=== PATIENT | female | born 1935 | race African-American/Black ===

== ENCOUNTER 2020-11-08 18:48 | Inpatient (IN) | payer MEDICARE, BC ==
[~2020-11-08] VITALS: Ht 157.5 cm; Wt 85.8 kg
[2020-11-08 19:00] VITALS: BP 164/71
[2020-11-08 19:15] VITALS: BP 159/58
[2020-11-08] MEDS ORDERED: BISACODYL 10 MG SUPP.RECT. PR PRN (20:45)
[2020-11-08] MEDS ORDERED: ACETAMINOPHEN 650 MG SUPP.RECT. PR PRN (20:45)
[2020-11-08] MEDS ORDERED: METOCLOPRAMIDE HCL 10 MG/2 ML VIAL. IVP PRN (20:45)
[2020-11-08] MEDS ORDERED: DEXTROSE 50% 25 GM / 50ML DISP.SYRIN. IV PRN (20:45)
[2020-11-08] MEDS ORDERED: ONDANSETRON PF 4 MG/2 ML VIAL. IVP PRN (20:45)
[2020-11-08] MEDS ORDERED: GLIM2TAB7 PO (20:47)
[2020-11-08] MEDS ORDERED: PIOG15TA42 PO (20:52)
[2020-11-08] MEDS ORDERED: FERR-36 PO (20:52)
[2020-11-08] MEDS ORDERED: VALS160T3 PO (20:52)
[2020-11-08] MEDS ORDERED: VIT1TABL32 PO (20:52)
[2020-11-08] MEDS: IV 1/2 NORMAL SALINE 1,000 ML IV SCH (21:04)
[2020-11-08] MEDS: MORPHINE SULFATE 2 MG/ML VIAL. IV PRN (21:07)
[2020-11-08] MEDS: HEPARIN for SUB-Q USE 5,000 UNIT/ML VIAL. SQ SCH (21:20)
[2020-11-08] MEDS: PSYLLIUM HUSK (SUGAR FREE) 1 PKT PACKET PO SCH (21:30)
[2020-11-08] MEDS ORDERED: SENNOSIDES/DOCUSATE 8.6/50MG TABLET. PO PRN (21:30)
[2020-11-08 23:00] VITALS: BP_SYST 152; BP_SYST 164; BP_DIAS 71; BP_DIAS 72
[2020-11-08] MEDS: INSULIN LISPRO 300 UNITS/3 ML VIAL. SQ SCH (23:28)
[2020-11-09 03:00] VITALS: BP 161/66
[2020-11-09] MEDS: MORPHINE SULFATE 2 MG/ML VIAL. IV PRN ×5 (03:34→23:56)
[2020-11-09] MEDS: IV 1/2 NORMAL SALINE 1,000 ML IV SCH ×3 (05:38→23:49)
[2020-11-09] MEDS: HEPARIN for SUB-Q USE 5,000 UNIT/ML VIAL. SQ SCH ×3 (05:40→23:52)
[2020-11-09] MEDS: INSULIN LISPRO 300 UNITS/3 ML VIAL. SQ SCH ×3 (05:40→16:45)
[2020-11-09 07:00] VITALS: BP 140/49
[2020-11-09] MEDS: LOSARTAN POTASSIUM 50 MG TABLET. PO SCH ×2 (08:30→16:47)
[2020-11-09] MEDS: POLYETHYLENE GLYCOL 3350 17 GM PACKET. PO SCH (08:30)
[2020-11-09] MEDS: MULTIVITAMIN I-VITE TABLET. PO SCH (08:30)
[2020-11-09 10:07] LABS: BASO % 1 % (0-3); EOS # 0.2 x10^3/uL (0.0-0.7); EOS % 3 % (0-3); HEMATOCRIT 33.9 % (36.0-47.0); LYMPH # 1.5 x10^3/uL (1.0-4.8); LYMPH % 34 % (24-48); MEAN CORPUSCULAR HEMOGLOBIN 32 pg (25-35); MEAN CORPUSCULAR HGB CONC 33 g/dL (31-37); MEAN CORPUSCULAR VOLUME 99 fL (79-100); MONO # 0.5 x10^3/uL (0.0-1.1); MONO % 12 % (0-9); NEUT # 2.3 x10^3/uL (1.8-7.7); NEUT % 51 % (31-73); PLATELET COUNT 134 x10^3/uL (140-400); RED BLOOD COUNT 3.42 x10^6/uL (3.50-5.40); WHITE BLOOD COUNT 4.5 x10^3/uL (4.0-11.0)
[2020-11-09] MEDS ORDERED: CALCIUM CARBONATE 500 MG TAB.CHEW PO PRN (10:15)
[2020-11-09] MEDS ORDERED: ELECTROLYTE (NON-ICU) PROTOCOL. MC PRN (10:15)
[2020-11-09] MEDS ORDERED: BISACODYL 10 MG SUPP.RECT. PR PRN (10:15)
[2020-11-09] MEDS ORDERED: PROCHLORPERAZINE 25 MG SUPP.RECT. PR PRN (10:15)
[2020-11-09] MEDS ORDERED: IV RINGERS,LACTATED 1000ML 1,000 ML IV SCH (10:15)
[2020-11-09] MEDS ORDERED: LACTULOSE 20 GM/30 ML SOLUTION. PO PRN (10:15)
--- NOTE | 2020-11-09 10:26 | PDOC1 ---
History and Physical Date of Admission Date of Admission 11/09/2020 Identification/Chief Complaint Chief Complaint My back hurts Source Source: Chart review, Patient History of Present Illness History of Present Illness Patient is an 85-year-old female with multiple medical comorbidities that include hypertension diabetes iron deficiency anemia who was in her usual state of health until Wednesday when he started complaining of left CVA tenderness. The patient denied any urinary symptoms no dysuria no fever or chills were reported patient denied any nausea vomiting or diaphoresis reported either. She consulted her local emergency department and was admitted to [facility]. Past Medical History Cardiovascular: HTN, Hyperlipidemia Endocrine: Diabetes Past Surgical History Past Surgical History: No pertinent history Family History Family History: No Significant Social History Smoke: No ALCOHOL: none Drugs: None Current Medications Current Medications Current Medications Medications (Trade) Dose Ordered Sig/Karel Start Time Stop Time Status Last Admin Dose Admin Acetaminophen (Tylenol Supp) 650 mg PRN Q6HRS PRN 11/08/20 20:45 Bisacodyl (Dulcolax Supp) 10 mg PRN DAILY PRN 11/08/20 20:45 Dextrose (Dextrose 50%-Water Syringe) 12.5 gm PRN Q15MIN PRN 11/08/20 20:45 Heparin Sodium (Porcine) (Heparin Sodium) 5,000 unit Q8HRS 11/08/20 22:00 11/09/20 05:40 5,000 UNIT Insulin Human Lispro (HumaLOG) 0-7 UNITS Q6HRS 11/09/20 00:00 Losartan Potassium (Cozaar) 100 mg DAILY 11/09/20 09:00 Metoclopramide HCl (Reglan Vial) 10 mg PRN Q6HRS PRN 11/08/20 20:45 Morphine Sulfate (Morphine Sulfate) 2 mg PRN Q1HR PRN 11/08/20 20:45 11/09/20 03:34 2 MG Multivitamins/ Minerals (I-Marily) 1 tab DAILY 11/09/20 09:00 Olanzapine (ZyPREXA ZYDIS) 5 mg PRN BID PRN 11/08/20 21:30 Ondansetron HCl (Zofran) 4 mg PRN Q6HRS PRN 11/08/20 20:45 11/08/20 21:05 4 MG Polyethylene Glycol (miraLAX PACKET) 17 gm DAILY 11/09/20 09:00 Psyllium Hydrophilic Mucilloid (Metamucil Fiber Packet) 1 pkt QHS 11/08/20 21:30 Senna/Docusate Sodium (Senna Plus) 2 tab PRN BID PRN 11/08/20 21:30 Sodium Chloride 1,000 ml @ 100 mls/hr Q10H 11/08/20 20:45 11/09/20 05:38 100 MLS/HR Allergies Allergies Allergies Coded Allergies Type Severity Reaction Last Updated Verified Sulfa (Sulfonamide Antibiotics) Allergy Unknown 11/08/20 Yes ROS Review of System CONSTITUTIONAL: No fever or chills EYES: No recent changes SKIN: No rash or itching CARDIOVASCULAR: No chest pain, syncope, palpitations, or edema RESPIRATORY: No SOB or cough GASTROINTESTINAL: No nausea, vomiting or abdominal pain NEUROLOGICAL: No headaches or weakness ENDOCRINE: No cold or heat intolerance GENITOURINARY: No urgency or frequency of urination MUSCULOSKELETAL: No back pain or joint pain LYMPHATICS: No enlarged lymph nodes PSYCHIATRIC: No anxiety or depression Physical Exam Physical Exam GEN.: No apparent distress. Alert and oriented. HEENT: Head is normocephalic, atraumatic NECK: Supple. LUNGS: Clear to auscultation. HEART: RRR, S1, S2 present. Peripheral pulses intact ABDOMEN: Soft, nontender. Positive bowel sounds. EXTREMITIES: Without any cyanosis. NEUROLOGIC: Normal speech, normal tone PSYCHIATRIC: Normal affect, normal mood. SKIN: No ulcerations Vitals Vitals Vital Signs Date Time Temp Pulse Resp B/P (MAP) Pulse Ox O2 Delivery O2 Flow Rate FiO2 11/09/20 07:00 98.4 75 16 140/49 (79) 99 Room Air 98.4 Labs Labs Laboratory Tests Test 11/08/20 21:31 11/09/20 01:53 11/09/20 05:37 Glucose (Fingerstick) 132 mg/dL (70-99) 123 mg/dL (70-99) 124 mg/dL (70-99) Laboratory Tests Test 11/08/20 21:31 11/09/20 01:53 11/09/20 05:37 Glucose (Fingerstick) 132 mg/dL (70-99) 123 mg/dL (70-99) 124 mg/dL (70-99) VTE Prophylaxis Ordered VTE Prophylaxis Devices: Yes VTE Pharmacological Prophylaxi: No Assessment/Plan Assessment/Plan Anemia of unknown origin, etiology undetermined Reported nausea and vomiting currently resolved Left CVA tenderness, no rash visible. essential hypertension DM type 2 dyslipidemia Plan: will request GI consultation Symptoms control N.p.o. at the present time Resume home medications once available to resume oral intake Further recommendations based on clinical course DVT prophylaxis with SCDs based on history of possible GI bleeding Justifications for Admission Abdominal Pain Indications Is patient in severe pain?: Yes Is NPO status required?: Yes Justification for admission: Patient may require to be NPO for greater 24hours making it medically necessary to manage patient as inpatient. Other Justification COOKIE DOMINGUEZ MD Nov 09, 2020 10:26
[2020-11-09 10:33] LABS: ALBUMIN/GLOBULIN RATIO 0.9 (1.0-1.7); CREATININE 1.3 mg/dL (0.6-1.0); GFR 47.2; POTASSIUM 4.6 mmol/L (3.5-5.1); TOTAL BILIRUBIN 0.4 mg/dL (0.2-1.0); TOTAL PROTEIN 6.2 g/dL (6.4-8.2)
[2020-11-09 11:00] VITALS: BP 193/79
[2020-11-09 11:23] LABS: PROTHROMBIN TIME PATIENT 13.6 SEC (11.7-14.0)
[2020-11-09] MEDS: ONDANSETRON PF 4 MG/2 ML VIAL. IVP PRN ×2 (13:07→20:07)
--- NOTE | 2020-11-09 14:08 | PDOC2 ---
CONSULT Date of Consult Date of Consult DATE: 11/09/20 TIME: 14:00 Reason for Consult Reason for Consult: Nausea, vomiting, left-sided upper abdominal and flank pain History of Present Illness Reason for Visit: This is a very pleasant 85-year-old female who was transferred here from [facility]. She describes a fairly sudden onset of left-sided abdominal or flank pain starting on Wednesday. She had taken her grandson to school then came home and without any specific exertion or other change she developed sharp pain that "caught her". It was associated with nausea and some vomiting. She went to the emergency room and apparently had a negative work-up and was sent home but returned with persistent symptoms yesterday. She normally has a regular bowel pattern but has had no bowel movement in 2 days. She denies diarrhea, fever, rectal bleeding or melena. She also denies epigastric pain. Her pain is more in the under the left side of the abdomen but mostly in the left flank. It is not necessarily associated with eating but seems worse with movement on some occasions. She is not been able to eat much since this started. She continues to be nauseated today. She describes a colonoscopy 4 years ago that was relatively negative. Curiously back in 2016 she had some up per abdominal pain in the epigastric region, different than this, without nausea or vomiting but was never diagnosed as to the cause. Those symptoms resolved and over the past 4 years she denies any chronic significant GI complaints. Particular she denies heartburn, dyspepsia, nausea, upper abdominal pain etc. Her bowel pattern is regular daily. Past Medical History Cardiovascular: HTN, Hyperlipidemia Endocrine: Diabetes Past Surgical History Past Surgical History: No pertinent history Family History Family History: No Significant Social History No ALCOHOL: none Drugs: None Current Medications Current Medications Current Medications Sodium Chloride 1,000 ml @ 100 mls/hr Q10H IV Last administered on 11/09/20at 05:38; Start 11/08/20 at 20:45 Ondansetron HCl (Zofran) 4 mg PRN Q6HRS PRN IVP NAUSEA/VOMITING Last administered on 11/08/20at 21:05; Start 11/08/20 at 20:45; Stop 11/09/20 at 10:08; Status DC Morphine Sulfate (Morphine Sulfate) 2 mg PRN Q1HR PRN IV PAIN Last administered on 11/09/20at 03:34; Start 11/08/20 at 20:45; Stop 11/09/20 at 10:18; Status DC Bisacodyl (Dulcolax Supp) 10 mg PRN DAILY PRN MA CONSTIPATION; Start 11/08/20 at 20:45; Stop 11/09/20 at 10:17; Status DC Heparin Sodium (Porcine) (Heparin Sodium) 5,000 unit Q8HRS SQ Last administered on 11/09/20at 05:40; Start 11/08/20 at 22:00 Acetaminophen (Tylenol Supp) 650 mg PRN Q6HRS PRN MA MILD PAIN / TEMP > 100.3'F; Start 11/08/20 at 20:45 Insulin Human Lispro (HumaLOG) 0-7 UNITS Q6HRS SQ ; Start 11/09/20 at 00:00 Dextrose (Dextrose 50%-Water Syringe) 12.5 gm PRN Q15MIN PRN IV SEE COMMENTS; Start 11/08/20 at 20:45 Metoclopramide HCl (Reglan Vial) 10 mg PRN Q6HRS PRN IVP NAUSEA/VOMITING-2ND CHOICE; Start 11/08/20 at 20:45 Multivitamins/ Minerals (I-Marily) 1 tab DAILY PO ; Start 11/09/20 at 09:00 Losartan Potassium (Cozaar) 100 mg DAILY PO ; Start 11/09/20 at 09:00 Psyllium Hydrophilic Mucilloid (Metamucil Fiber Packet) 1 pkt QHS PO ; Start 11/08/20 at 21:30 Olanzapine (ZyPREXA ZYDIS) 5 mg PRN BID PRN PO ANXIETY / AGITATION; Start 11/08/20 at 21:30 Polyethylene Glycol (miraLAX PACKET) 17 gm DAILY PO ; Start 11/09/20 at 09:00 Senna/Docusate Sodium (Senna Plus) 2 tab PRN BID PRN PO CONSTIPATION; Start 11/08/20 at 21:30; Stop 11/09/20 at 10:18; Status DC Ringer's Solution 1,000 ml @ 75 mls/hr [id number] IV Last administered on 11/09/20at 10:29; Start 11/09/20 at 10:15; Stop 11/09/20 at 23:34 Ondansetron HCl (Zofran) 4 mg PRN Q6HRS PRN IVP NAUSEA/VOMITING Last administered on 11/09/20at 13:07; Start 11/09/20 at 10:15 Prochlorperazine (Compazine) 25 mg PRN Q12HR PRN MA NAUSEA/VOMITING; Start 11/09/20 at 10:15 Calcium Carbonate/ Glycine (Tums) 500 mg PRN Q3HRS PRN PO UPSET STOMACH; Start 11/09/20 at 10:15 Zolpidem Tartrate (Ambien) 5 mg PRN QHS PRN PO INSOMNIA, MAY REPEAT IN 1HR; Start 11/09/20 at 10:15 Info (Non-Icu Electrolyte Protocol) 1 ea PRN DAILY PRN MC SEE COMMENTS; Start 11/09/20 at 10:15 Morphine Sulfate (Morphine Sulfate) 2 mg PRN Q1HR PRN IV PAIN MILD TO MOD Last administered on 11/09/20at 13:03; Start 11/09/20 at 10:15 Acetaminophen/ Hydrocodone Bitart (Lortab 5/325) 1 tab PRN Q4HRS PRN PO MILD PAIN 1-3; Start 11/09/20 at 10:15 Acetaminophen (Tylenol) 650 mg PRN Q6HRS PRN PO Headaches, Temp > 101.5F; Sta rt 11/09/20 at 10:15 Senna/Docusate Sodium (Senna Plus) 1 tab BID PO ; Start 11/09/20 at 21:00 Docusate Sodium (Colace) 100 mg BID PO ; Start 11/09/20 at 21:00 Lactulose (Lactulose) 20 gm PRN Q12HR PRN PO CONSTIPATION; Start 11/09/20 at 10:15 Bisacodyl (Dulcolax Supp) 10 mg PRN DAILY PRN MA CONSTIPATION; Start 11/09/20 at 10:15 Active Scripts Active Reported Iron (Ferrous Sulfate) 325 Mg Tablet 325 Mg PO BID Diovan (Valsartan) 160 Mg Tablet 160 Mg PO DAILY Actos (Pioglitazone Hcl) 15 Mg Tablet 15 Mg PO DAILY Ocuvite Tablet (Vit A,C & E/Lutein/Minerals) 1 Each Tablet 1 Tab PO DAILY 30 Days Glimepiride 2 Mg Tablet 2 Mg PO DAILY Allergies Allergies: Coded Allergies: Sulfa (Sulfonamide Antibiotics) (Verified Allergy, Unknown, 11/08/20) rash Physical Exam General: Alert, Oriented X3, Cooperative HEENT: Atraumatic, PERRLA, EOMI Lungs: Clear to auscultation Heart: Regular rate, Normal S1, Normal S2 Abdomen: Normal bowel sounds, Soft, No tenderness, No hepatosplenomegaly, No masses Extremities: No clubbing, No cyanosis Neuro: Normal speech Psych/Mental Status: Mental status NL Vitals VITALS Vital Signs Date Time Temp Pulse Resp B/P (MAP) Pulse Ox O2 Delivery O2 Flow Rate FiO2 11/09/20 13:36 Room Air 11/09/20 11:00 98.5 76 18 193/79 (117) 97 98.5 Labs Labs Laboratory Tests Test 11/08/20 21:31 11/09/20 01:53 11/09/20 05:37 11/09/20 08:41 Glucose (Fingerstick) 132 mg/dL (70-99) 123 mg/dL (70-99) 124 mg/dL (70-99) White Blood Count 4.5 x10^3/uL (4.0-11.0) Red Blood Count 3.42 x10^6/uL (3.50-5.40) Hemoglobin 11.0 g/dL (12.0-15.5) Hematocrit 33.9 % (36.0-47.0) Mean Corpuscular Volume 99 fL (79-100) Mean Corpuscular Hemoglobin 32 pg (25-35) Mean Corpuscular Hemoglobin Concent 33 g/dL (31-37) Red Cell Distribution Width 14.0 % (11.5-14.5) Platelet Count 134 x10^3/uL (140-400) Neutrophils (%) (Auto) 51 % (31-73) Lymphocytes (%) (Auto) 34 % (24-48) Monocytes (%) (Auto) 12 % (0-9) Eosinophils (%) (Auto) 3 % (0-3) Basophils (%) (Auto) 1 % (0-3) Neutrophils # (Auto) 2.3 x10^3/uL (1.8-7.7) Lymphocytes # (Auto) 1.5 x10^3/uL (1.0-4.8) Monocytes # (Auto) 0.5 x10^3/uL (0.0-1.1) Eosinophils # (Auto) 0.2 x10^3/uL (0.0-0.7) Basophils # (Auto) 0.0 x10^3/uL (0.0-0.2) Prothrombin Time 13.6 SEC (11.7-14.0) Prothromb Time International Ratio 1.1 (0.8-1.1) Sodium Level 142 mmol/L (136-145) Potassium Level 4.6 mmol/L (3.5-5.1) Chloride Level 107 mmol/L (98-107) Carbon Dioxide Level 27 mmol/L (21-32) Anion Gap 8 (6-14) Blood Urea Nitrogen 17 mg/dL (7-20) Creatinine 1.3 mg/dL (0.6-1.0) Estimated GFR (Cockcroft-Gault) 47.2 BUN/Creatinine Ratio 13 (6-20) Glucose Level 96 mg/dL (70-99) Calcium Level 9.0 mg/dL (8.5-10.1) Phosphorus Level 3.0 mg/dL (2.6-4.7) Magnesium Level 2.0 mg/dL (1.8-2.4) Iron Level 65 ug/dL (50-170) Total Iron Binding Capacity 293 ug/dL (250-450) Iron Saturation 22 % (15-34) Total Bilirubin 0.4 mg/dL (0.2-1.0) Aspartate Amino Transf (AST/SGOT) 18 U/L (15-37) Alanine Aminotransferase (ALT/SGPT) 25 U/L (14-59) Alkaline Phosphatase 55 U/L (46-116) Lactate Dehydrogenase 187 U/L (81-234) Total Protein 6.2 g/dL (6.4-8.2) Albumin 3.0 g/dL (3.4-5.0) Albumin/Globulin Ratio 0.9 (1.0-1.7) Thyroid Stimulating Hormone (TSH) 3.853 uIU/mL (0.358-3.74) Test 11/09/20 12:01 Glucose (Fingerstick) 99 mg/dL (70-99) Laboratory Tests Test 11/08/20 21:31 11/09/20 01:53 11/09/20 05:37 11/09/20 08:41 Glucose (Fingerstick) 132 mg/dL (70-99) 123 mg/dL (70-99) 124 mg/dL (70-99) White Blood Count 4.5 x10^3/uL (4.0-11.0) Red Blood Count 3.42 x10^6/uL (3.50-5.40) Hemoglobin 11.0 g/dL (12.0-15.5) Hematocrit 33.9 % (36.0-47.0) Mean Corpuscular Volume 99 fL (79-100) Mean Corpuscular Hemoglobin 32 pg (25-35) Mean Corpuscular Hemoglobin Concent 33 g/dL (31-37) Red Cell Distribution Width 14.0 % (11.5-14.5) Platelet Count 134 x10^3/uL (140-400) Neutrophils (%) (Auto) 51 % (31-73) Lymphocytes (%) (Auto) 34 % (24-48) Monocytes (%) (Auto) 12 % (0-9) Eosinophils (%) (Auto) 3 % (0-3) Basophils (%) (Auto) 1 % (0-3) Neutrophils # (Auto) 2.3 x10^3/uL (1.8-7.7) Lymphocytes # (Auto) 1.5 x10^3/uL (1.0-4.8) Monocytes # (Auto) 0.5 x10^3/uL (0.0-1.1) Eosinophils # (Auto) 0.2 x10^3/uL (0.0-0.7) Basophils # (Auto) 0.0 x10^3/uL (0.0-0.2) Prothrombin Time 13.6 SEC (11.7-14.0) Prothromb Time International Ratio 1.1 (0.8-1.1) Sodium Level 142 mmol/L (136-145) Potassium Level 4.6 mmol/L (3.5-5.1) Chloride Level 107 mmol/L (98-107) Carbon Dioxide Level 27 mmol/L (21-32) Anion Gap 8 (6-14) Blood Urea Nitrogen 17 mg/dL (7-20) Creatinine 1.3 mg/dL (0.6-1.0) Estimated GFR (Cockcroft-Gault) 47.2 BUN/Creatinine Ratio 13 (6-20) Glucose Level 96 mg/dL (70-99) Calcium Level 9.0 mg/dL (8.5-10.1) Phosphorus Level 3.0 mg/dL (2.6-4.7) Magnesium Level 2.0 mg/dL (1.8-2.4) Iron Level 65 ug/dL (50-170) Total Iron Binding Capacity 293 ug/dL (250-450) Iron Saturation 22 % (15-34) Total Bilirubin 0.4 mg/dL (0.2-1.0) Aspartate Amino Transf (AST/SGOT) 18 U/L (15-37) Alanine Aminotransferase (ALT/SGPT) 25 U/L (14-59) Alkaline Phosphatase 55 U/L (46-116) Lactate Dehydrogenase 187 U/L (81-234) Total Protein 6.2 g/dL (6.4-8.2) Albumin 3.0 g/dL (3.4-5.0) Albumin/Globulin Ratio 0.9 (1.0-1.7) Thyroid Stimulating Hormone (TSH) 3.853 uIU/mL (0.358-3.74) Test 11/09/20 12:01 Glucose (Fingerstick) 99 mg/dL (70-99) Images Images CT scan of the abdomen and pelvis done at [facility] yesterday. Revealed a left lobe hepatic hemangioma. Showed a normal-appearing spleen, pancreas and gallbladder. No biliary ductal dilation. Moderate colonic stool was present no bowel obstruction or inflammation was noted. No hydronephrosis or nephrolithiasis was noted. No ascites. Some thickening of the stomach lining possibly representing gastritis was noted. A 9 x 6 mm right lobe nodule in the lower lung was noted. Assessment/Plan Assessment/Plan Acute onset left-sided flank pain. Sharp onset. Not associated with meals but it was associated with nausea and vomiting. Does not radiate into the epigastric region. No associated dyspeptic or heartburn symptoms in the past. No regular use of NSAIDs or other ulcerogenic medications. However CT scan reveals thickening in the gastric wall which may be nonspecific. The rest of the CT scan is unrevealing in particular no evidence for colitis or kidney process on the left to explain her symptoms. She denies shortness of breath but does relate that the pain might be worse with movement. Nausea and vomiting. This could be secondary to the pain or might be a reflection of the gastritis that is noted on CT. However she lacks epigastric pain and her examination is benign otherwise. History of chronic mild anemia. Presently her hemoglobin was 12.5 which is nearly normal. The cause is unclear. The rest of her labs appear relatively normal. Plan: IV Protonix empirically Antiemetic therapy Clear liquid diet as tolerated Although gastritis was noted on her CT her symptoms are not particularly consistent with peptic ulcer disease or gastritis. However elective endoscopy may be warranted in the next few days. Further evaluation of the left kidney may be warranted based on her history but I will defer to the hospitalist on this issue ROSARIO HANSON MD Nov 09, 2020 14:08
[2020-11-09 15:00] VITALS: BP 166/56
[2020-11-09 19:00] VITALS: BP 162/63
[2020-11-09] MEDS: DOCUSATE SODIUM 100 MG CAPSULE. PO SCH (20:06)
[2020-11-09] MEDS: SENNOSIDES/DOCUSATE 8.6/50MG TABLET. PO SCH (20:06)
[2020-11-09 23:00] VITALS: BP 178/64
[2020-11-09] MEDS: PSYLLIUM HUSK (SUGAR FREE) 1 PKT PACKET PO SCH (23:55)
[2020-11-10 03:08] VITALS: BP 168/67
[2020-11-10] MEDS: INSULIN LISPRO 300 UNITS/3 ML VIAL. SQ SCH ×4 (06:00→18:00)
[2020-11-10] MEDS: MORPHINE SULFATE 2 MG/ML VIAL. IV PRN ×4 (06:28→20:29)
[2020-11-10] MEDS: HEPARIN for SUB-Q USE 5,000 UNIT/ML VIAL. SQ SCH ×3 (06:34→20:42)
[2020-11-10 07:00] VITALS: BP 167/68
[2020-11-10 07:27] LABS: BASO % 1 % (0-3); EOS # 0.2 x10^3/uL (0.0-0.7); EOS % 5 % (0-3); HEMATOCRIT 32.4 % (36.0-47.0); HEMOGLOBIN 10.5 g/dL (12.0-15.5); LYMPH # 1.6 x10^3/uL (1.0-4.8); LYMPH % 38 % (24-48); MEAN CORPUSCULAR HEMOGLOBIN 32 pg (25-35); MEAN CORPUSCULAR HGB CONC 32 g/dL (31-37); MEAN CORPUSCULAR VOLUME 99 fL (79-100); MONO # 0.6 x10^3/uL (0.0-1.1); MONO % 14 % (0-9); NEUT # 1.7 x10^3/uL (1.8-7.7); NEUT % 42 % (31-73); PLATELET COUNT 122 x10^3/uL (140-400); RED BLOOD COUNT 3.28 x10^6/uL (3.50-5.40); RED CELL DISTRIBUTION WIDTH 13.7 % (11.5-14.5); WHITE BLOOD COUNT 4.1 x10^3/uL (4.0-11.0)
--- NOTE | 2020-11-10 07:51 | PDOC ---
PROGRESS NOTES Date of Service: DATE: 11/10/20 TIME: 07:47 Chief Complaint Chief Complaint Assessment/Plan Anemia of unknown origin, etiology undetermined, seems to be of chronic inflammation. Unlikely she is actively having a GI bleed nevertheless we will continue to follow recommendations from school plant consultant Reported nausea and vomiting currently has recurred Left CVA tenderness, no rash visible to think of zoster. We will request renal ultrasound in light of her renal dysfunction Elevated creatinine which may be due to chronic kidney disease stage IIIa at least essential hypertension fairly controlled DM type 2 dyslipidemia Plan: We will request hemoglobin A1c Symptoms control Liquid diet at the present time given her symptoms Resume home medications once available to resume oral intake Further recommendations based on clinical course DVT prophylaxis with SCDs based on history of possible GI bleeding History of Present Illness History of Present Illness History of Present Illness Patient is an 85-year-old female with multiple medical comorbidities that include hypertension diabetes iron deficiency anemia who was in her usual state of health until Wednesday when he started complaining of left CVA tenderness. The patient denied any urinary symptoms no dysuria no fever or chills were r eported patient denied any nausea vomiting or diaphoresis reported either. She consulted her local emergency department and was admitted to [facility]. 11/10: Patient laying in bed in no acute distress. The patient had 3 emetic episodes during the evening. Patient denies hematemesis still complaining of epigastric pain which may be related to peptic ulcer disease. Patient still having left flank pain. No hematuria reported no radiation to the groin. Renal dysfunction noted upon admission we will request renal ultrasound for today. Plan of care explained detail all concerns addressed to the best my abilities Vitals Vitals Vital Signs Date Time Temp Pulse Resp B/P (MAP) Pulse Ox O2 Delivery O2 Flow Rate FiO2 11/10/20 06:28 18 Room Air 11/10/20 03:08 97.9 71 168/67 (100) 95 97.9 Physical Exam General: Alert, Oriented X3, Cooperative Heart: Regular rate, Normal S1, Normal S2 Abdomen: Normal bowel sounds, Soft, No tenderness, No hepatosplenomegaly, No masses Extremities: No clubbing, No cyanosis Labs LABS Laboratory Tests Test 11/09/20 08:41 11/09/20 12:01 11/09/20 16:45 11/09/20 23:17 White Blood Count 4.5 x10^3/uL (4.0-11.0) Red Blood Count 3.42 x10^6/uL (3.50-5.40) Hemoglobin 11.0 g/dL (12.0-15.5) Hematocrit 33.9 % (36.0-47.0) Mean Corpuscular Volume 99 fL (79-100) Mean Corpuscular Hemoglobin 32 pg (25-35) Mean Corpuscular Hemoglobin Concent 33 g/dL (31-37) Red Cell Distribution Width 14.0 % (11.5-14.5) Platelet Count 134 x10^3/uL (140-400) Neutrophils (%) (Auto) 51 % (31-73) Lymphocytes (%) (Auto) 34 % (24-48) Monocytes (%) (Auto) 12 % (0-9) Eosinophils (%) (Auto) 3 % (0-3) Basophils (%) (Auto) 1 % (0-3) Neutrophils # (Auto) 2.3 x10^3/uL (1.8-7.7) Lymphocytes # (Auto) 1.5 x10^3/uL (1.0-4.8) Monocytes # (Auto) 0.5 x10^3/uL (0.0-1.1) Eosinophils # (Auto) 0.2 x10^3/uL (0.0-0.7) Basophils # (Auto) 0.0 x10^3/uL (0.0-0.2) Haptoglobin 114 mg/dL (41-333) Prothrombin Time 13.6 SEC (11.7-14.0) Prothromb Time International Ratio 1.1 (0.8-1.1) Sodium Level 142 mmol/L (136-145) Potassium Level 4.6 mmol/L (3.5-5.1) Chloride Level 107 mmol/L (98-107) Carbon Dioxide Level 27 mmol/L (21-32) Anion Gap 8 (6-14) Blood Urea Nitrogen 17 mg/dL (7-20) Creatinine 1.3 mg/dL (0.6-1.0) Estimated GFR (Cockcroft-Gault) 47.2 BUN/Creatinine Ratio 13 (6-20) Glucose Level 96 mg/dL (70-99) Calcium Level 9.0 mg/dL (8.5-10.1) Phosphorus Level 3.0 mg/dL (2.6-4.7) Magnesium Level 2.0 mg/dL (1.8-2.4) Iron Level 65 ug/dL (50-170) Total Iron Binding Capacity 293 ug/dL (250-450) Iron Saturation 22 % (15-34) Total Bilirubin 0.4 mg/dL (0.2-1.0) Aspartate Amino Transf (AST/SGOT) 18 U/L (15-37) Alanine Aminotransferase (ALT/SGPT) 25 U/L (14-59) Alkaline Phosphatase 55 U/L (46-116) Lactate Dehydrogenase 187 U/L (81-234) Total Protein 6.2 g/dL (6.4-8.2) Albumin 3.0 g/dL (3.4-5.0) Albumin/Globulin Ratio 0.9 (1.0-1.7) Thyroid Stimulating Hormone (TSH) 3.853 uIU/mL (0.358-3.74) Glucose (Fingerstick) 99 mg/dL (70-99) 108 mg/dL (70-99) 147 mg/dL (70-99) Test 11/10/20 06:23 Glucose (Fingerstick) 109 mg/dL (70-99) Review of Systems Review of Systems Review of systems pertinent as per HPI otherwise 14 point review of system is negative Comment Review of Relevant I have reviewed the following items maximilian (where applicable) has been applied. Labs Laboratory Tests Test 11/08/20 21:31 11/09/20 01:53 11/09/20 05:37 11/09/20 08:41 Glucose (Fingerstick) 132 mg/dL (70-99) 123 mg/dL (70-99) 124 mg/dL (70-99) White Blood Count 4.5 x10^3/uL (4.0-11.0) Red Blood Count 3.42 x10^6/uL (3.50-5.40) Hemoglobin 11.0 g/dL (12.0-15.5) Hematocrit 33.9 % (36.0-47.0) Mean Corpuscular Volume 99 fL (79-100) Mean Corpuscular Hemoglobin 32 pg (25-35) Mean Corpuscular Hemoglobin Concent 33 g/dL (31-37) Red Cell Distribution Width 14.0 % (11.5-14.5) Platelet Count 134 x10^3/uL (140-400) Neutrophils (%) (Auto) 51 % (31-73) Lymphocytes (%) (Auto) 34 % (24-48) Monocytes (%) (Auto) 12 % (0-9) Eosinophils (%) (Auto) 3 % (0-3) Basophils (%) (Auto) 1 % (0-3) Neutrophils # (Auto) 2.3 x10^3/uL (1.8-7.7) Lymphocytes # (Auto) 1.5 x10^3/uL (1.0-4.8) Monocytes # (Auto) 0.5 x10^3/uL (0.0-1.1) Eosinophils # (Auto) 0.2 x10^3/uL (0.0-0.7) Basophils # (Auto) 0.0 x10^3/uL (0.0-0.2) Haptoglobin 114 mg/dL (41-333) Prothrombin Time 13.6 SEC (11.7-14.0) Prothromb Time International Ratio 1.1 (0.8-1.1) Sodium Level 142 mmol/L (136-145) Potassium Level 4.6 mmol/L (3.5-5.1) Chloride Level 107 mmol/L (98-107) Carbon Dioxide Level 27 mmol/L (21-32) Anion Gap 8 (6-14) Blood Urea Nitrogen 17 mg/dL (7-20) Creatinine 1.3 mg/dL (0.6-1.0) Estimated GFR (Cockcroft-Gault) 47.2 BUN/Creatinine Ratio 13 (6-20) Glucose Level 96 mg/dL (70-99) Calcium Level 9.0 mg/dL (8.5-10.1) Phosphorus Level 3.0 mg/dL (2.6-4.7) Magnesium Level 2.0 mg/dL (1.8-2.4) Iron Level 65 ug/dL (50-170) Total Iron Binding Capacity 293 ug/dL (250-450) Iron Saturation 22 % (15-34) Total Bilirubin 0.4 mg/dL (0.2-1.0) Aspartate Amino Transf (AST/SGOT) 18 U/L (15-37) Alanine Aminotransferase (ALT/SGPT) 25 U/L (14-59) Alkaline Phosphatase 55 U/L (46-116) Lactate Dehydrogenase 187 U/L (81-234) Total Protein 6.2 g/dL (6.4-8.2) Albumin 3.0 g/dL (3.4-5.0) Albumin/Globulin Ratio 0.9 (1.0-1.7) Thyroid Stimulating Hormone (TSH) 3.853 uIU/mL (0.358-3.74) Test 11/09/20 12:01 11/09/20 16:45 11/09/20 23:17 11/10/20 06:23 Glucose (Fingerstick) 99 mg/dL (70-99) 108 mg/dL (70-99) 147 mg/dL (70-99) 109 mg/dL (70-99) Laboratory Tests Test 11/09/20 08:41 11/09/20 12:01 11/09/20 16:45 11/09/20 23:17 White Blood Count 4.5 x10^3/uL (4.0-11.0) Red Blood Count 3.42 x10^6/uL (3.50-5.40) Hemoglobin 11.0 g/dL (12.0-15.5) Hematocrit 33.9 % (36.0-47.0) Mean Corpuscular Volume 99 fL (79-100) Mean Corpuscular Hemoglobin 32 pg (25-35) Mean Corpuscular Hemoglobin Concent 33 g/dL (31-37) Red Cell Distribution Width 14.0 % (11.5-14.5) Platelet Count 134 x10^3/uL (140-400) Neutrophils (%) (Auto) 51 % (31-73) Lymphocytes (%) (Auto) 34 % (24-48) Monocytes (%) (Auto) 12 % (0-9) Eosinophils (%) (Auto) 3 % (0-3) Basophils (%) (Auto) 1 % (0-3) Neutrophils # (Auto) 2.3 x10^3/uL (1.8-7.7) Lymphocytes # (Auto) 1.5 x10^3/uL (1.0-4.8) Monocytes # (Auto) 0.5 x10^3/uL (0.0-1.1) Eosinophils # (Auto) 0.2 x10^3/uL (0.0-0.7) Basophils # (Auto) 0.0 x10^3/uL (0.0-0.2) Haptoglobin 114 mg/dL (41-333) Prothrombin Time 13.6 SEC (11.7-14.0) Prothromb Time International Ratio 1.1 (0.8-1.1) Sodium Level 142 mmol/L (136-145) Potassium Level 4.6 mmol/L (3.5-5.1) Chloride Level 107 mmol/L (98-107) Carbon Dioxide Level 27 mmol/L (21-32) Anion Gap 8 (6-14) Blood Urea Nitrogen 17 mg/dL (7-20) Creatinine 1.3 mg/dL (0.6-1.0) Estimated GFR (Cockcroft-Gault) 47.2 BUN/Creatinine Ratio 13 (6-20) Glucose Level 96 mg/dL (70-99) Calcium Level 9.0 mg/dL (8.5-10.1) Phosphorus Level 3.0 mg/dL (2.6-4.7) Magnesium Level 2.0 mg/dL (1.8-2.4) Iron Level 65 ug/dL (50-170) Total Iron Binding Capacity 293 ug/dL (250-450) Iron Saturation 22 % (15-34) Total Bilirubin 0.4 mg/dL (0.2-1.0) Aspartate Amino Transf (AST/SGOT) 18 U/L (15-37) Alanine Aminotransferase (ALT/SGPT) 25 U/L (14-59) Alkaline Phosphatase 55 U/L (46-116) Lactate Dehydrogenase 187 U/L (81-234) Total Protein 6.2 g/dL (6.4-8.2) Albumin 3.0 g/dL (3.4-5.0) Albumin/Globulin Ratio 0.9 (1.0-1.7) Thyroid Stimulating Hormone (TSH) 3.853 uIU/mL (0.358-3.74) Glucose (Fingerstick) 99 mg/dL (70-99) 108 mg/dL (70-99) 147 mg/dL (70-99) Test 11/10/20 06:23 Glucose (Fingerstick) 109 mg/dL (70-99) Medications Current Medications Sodium Chloride 1,000 ml @ 100 mls/hr Q10H IV Last administered on 11/09/20at 23:49; Start 11/08/20 at 20:45 Ondansetron HCl (Zofran) 4 mg PRN Q6HRS PRN IVP NAUSEA/VOMITING Last administered on 11/08/20at 21:05; Start 11/08/20 at 20:45; Stop 11/09/20 at 10:08; Status DC Morphine Sulfate (Morphine Sulfate) 2 mg PRN Q1HR PRN IV PAIN Last administered on 11/09/20at 03:34; Start 11/08/20 at 20:45; Stop 11/09/20 at 10:18; Status DC Bisacodyl (Dulcolax Supp) 10 mg PRN DAILY PRN [place] CONSTIPATION; Start 11/08/20 at 20:45; Stop 11/09/20 at 10:17; Status DC Heparin Sodium (Porcine) (Heparin Sodium) 5,000 unit Q8HRS SQ Last administered on 11/10/20at 06:34; Start 11/08/20 at 22:00 Acetaminophen (Tylenol Supp) 650 mg PRN Q6HRS PRN VA MILD PAIN / TEMP > 100.3'F; Start 11/08/20 at 20:45 Insulin Human Lispro (HumaLOG) 0-7 UNITS Q6HRS SQ ; Start 11/09/20 at 00:00 Dextrose (Dextrose 50%-Water Syringe) 12.5 gm PRN Q15MIN PRN IV SEE COMMENTS; Start 11/08/20 at 20:45 Metoclopramide HCl (Reglan Vial) 10 mg PRN Q6HRS PRN IVP NAUSEA/VOMITING-2ND CHOICE; Start 11/08/20 at 20:45 Multivitamins/ Minerals (I-Marily) 1 tab DAILY PO ; Start 11/09/20 at 09:00 Losartan Potassium (Cozaar) 100 mg DAILY PO Last administered on 11/09/20at 16:47; Start 11/09/20 at 09:00 Psyllium Hydrophilic Mucilloid (Metamucil Fiber Packet) 1 pkt QHS PO Last administered on 11/09/20at 23:55; Start 11/08/20 at 21:30 Olanzapine (ZyPREXA ZYDIS) 5 mg PRN BID PRN PO ANXIETY / AGITATION; Start 11/08/20 at 21:30 Polyethylene Glycol (miraLAX PACKET) 17 gm DAILY PO ; Start 11/09/20 at 09:00 Senna/Docusate Sodium (Senna Plus) 2 tab PRN BID PRN PO CONSTIPATION; Start 11/08/20 at 21:30; Stop 11/09/20 at 10:18; Status DC Ringer's Solution 1,000 ml @ 75 mls/hr [id number] IV Last administered on 11/09/20at 10:29; Start 11/09/20 at 10:15; Stop 11/09/20 at 23:34; Status DC Ondansetron HCl (Zofran) 4 mg PRN Q6HRS PRN IVP NAUSEA/VOMITING Last administered on 11/09/20at 20:07; Start 11/09/20 at 10:15 Prochlorperazine (Compazine) 25 mg PRN Q12HR PRN VA NAUSEA/VOMITING; Start 11/09/20 at 10:15 Calcium Carbonate/ Glycine (Tums) 500 mg PRN Q3HRS PRN PO UPSET STOMACH; Start 11/09/20 at 10:15 Zolpidem Tartrate (Ambien) 5 mg PRN QHS PRN PO INSOMNIA, MAY REPEAT IN 1HR; Start 11/09/20 at 10:15 Info (Non-Icu Electrolyte Protocol) 1 ea PRN DAILY PRN MC SEE COMMENTS; Start 11/09/20 at 10:15 Morphine Sulfate (Morphine Sulfate) 2 mg PRN Q1HR PRN IV PAIN MILD TO MOD Last administered on 11/10/20at 06:28; Start 11/09/20 at 10:15 Acetaminophen/ Hydrocodone Bitart (Lortab 5/325) 1 tab PRN Q4HRS PRN PO MILD PAIN 1-3; Start 11/09/20 at 10:15 Acetaminophen (Tylenol) 650 mg PRN Q6HRS PRN PO Headaches, Temp > 101.5F; Start 11/09/20 at 10:15 Senna/Docusate Sodium (Senna Plus) 1 tab BID PO Last administered on 11/09/20at 20:06; Start 11/09/20 at 21:00 Docusate Sodium (Colace) 100 mg BID PO Last administered on 11/09/20at 20:06; Start 11/09/20 at 21:00 Lactulose (Lactulose) 20 gm PRN Q12HR PRN PO CONSTIPATION; Start 11/09/20 at 10:15 Bisacodyl (Dulcolax Supp) 10 mg PRN DAILY PRN VA CONSTIPATION; Start 11/09/20 at 10:15 Pantoprazole Sodium (PROTONIX VIAL for IV PUSH) 40 mg DAILYAC IVP ; Start 11/10/20 at 07:30 Active Scripts Active Reported Iron (Ferrous Sulfate) 325 Mg Tablet 325 Mg PO BID Diovan (Valsartan) 160 Mg Tablet 160 Mg PO DAILY Actos (Pioglitazone Hcl) 15 Mg Tablet 15 Mg PO DAILY Ocuvite Tablet (Vit A,C & E/Lutein/Minerals) 1 Each Tablet 1 Tab PO DAILY 30 Days Glimepiride 2 Mg Tablet 2 Mg PO DAILY Vitals/I & O Vital Sign - Last 24 Hours 11/09/20 11/09/20 11/09/20 11/09/20 08:00 10:27 10:57 11:00 Temp 98.5 98.5 Pulse 76 Resp 18 B/P (MAP) 193/79 (117) Pulse Ox 97 O2 Delivery Room Air Room Air Room Air Room Air 11/09/20 11/09/20 11/09/20 11/09/20 13:03 13:36 15:00 16:47 Temp 99.7 99.7 Pulse 79 79 Resp 16 B/P (MAP) 166/56 (92) 166/56 Pulse Ox 94 O2 Delivery Room Air Room Air Room Air 11/09/20 11/09/20 11/09/20 11/09/20 16:47 17:21 19:00 20:00 Temp 98.8 98.8 Pulse 69 Resp 18 B/P (MAP) 162/63 (96) Pulse Ox 93 O2 Delivery Room Air Room Air Room Air Room Air 11/09/20 11/09/20 11/10/20 11/10/20 23:00 23:56 00:26 03:08 Temp 98.4 97.9 98.4 97.9 Pulse 74 71 Resp 20 18 18 18 B/P (MAP) 178/64 (102) 168/67 (100) Pulse Ox 96 95 O2 Delivery Room Air Room Air Room Air 11/10/20 06:28 Resp 18 O2 Delivery Room Air Intake and Output 11/09/20 11/09/20 11/10/20 15:00 23:00 07:00 Intake Total 0 ml 200 ml 1000 ml Output Total 0 ml Balance 0 ml 200 ml 1000 ml Justicifation of Admission Dx: Justifications for Admission: Justification of Admission Dx: Yes Acute Renal Failure: 75% Reduction in GFR COOKIE DOMINGUEZ MD Nov 10, 2020 07:51
[2020-11-10] MEDS: MULTIVITAMIN I-VITE TABLET. PO SCH (08:22)
[2020-11-10] MEDS: LOSARTAN POTASSIUM 50 MG TABLET. PO SCH (08:22)
[2020-11-10] MEDS: PANTOPRAZOLE IV PUSH 40 MG VIAL. IVP SCH (08:23)
[2020-11-10] MEDS: HYDROcodone/APAP 5/325MG 1 TAB TABLET PO PRN (08:23)
[2020-11-10] MEDS: SENNOSIDES/DOCUSATE 8.6/50MG TABLET. PO SCH ×2 (08:23→20:29)
[2020-11-10] MEDS: POLYETHYLENE GLYCOL 3350 17 GM PACKET. PO SCH (08:23)
[2020-11-10] MEDS: DOCUSATE SODIUM 100 MG CAPSULE. PO SCH ×2 (08:23→20:29)
[2020-11-10] MEDS: ONDANSETRON PF 4 MG/2 ML VIAL. IVP PRN (10:40)
[2020-11-10 11:00] VITALS: BP_SYST 206; BP_SYST 214; BP_DIAS 74; BP_DIAS 75
[2020-11-10] MEDS ORDERED: PROCHLORPERAZINE 10 MG/2 ML VIAL. IVP PRN (11:15)
[2020-11-10] MEDS ORDERED: PROCHLORPERAZINE 10 MG/2 ML VIAL. IM PRN (11:15)
[2020-11-10] MEDS ORDERED: LABETALOL 20 MG/4 ML DISP.SYRIN. IVP ONE (12:45)
[2020-11-10] MEDS ORDERED: hydrALAZINE 20 MG/ML VIAL. IVP PRN (12:45)
--- NOTE | 2020-11-10 14:21 | RAD ---
Renal ultrasound 11/10/2020. Reason for exam: Flank pain. FINDINGS: The right kidney has normal cortical thickness and echogenicity without apparent mass or ob struction. Measures 9.0 cm in length. The left kidney was partly obscured, but appears to have normal cortical thickness and echogenicity. The urinary bladder appears normal. IMPRESSION: No evidence of obstruction or large mass. The left kidney was partly obscured by bowel ga s. Electronically signed by: Ruben Yip Jr., MD (11/10/2020 1:55 PM) [id number]
--- NOTE | 2020-11-10 14:26 | PDOC ---
GI PROGRESS NOTES Date of Service: Date/Time DATE: 11/10/20 TIME: 14:23 Subjective Subjective Left-sided pain mostly in the left flank. Associated with nausea and vomiting so could not tolerate a liquid diet. No hematemesis. Objective Vitals Vital Signs Date Time Temp Pulse Resp B/P (MAP) Pulse Ox O2 Delivery O2 Flow Rate FiO2 11/10/20 11:28 Room Air 11/10/20 11:00 214/75 (121) 11/10/20 11:00 98.7 78 18 206/74 (118) 95 Room Air 98.7 11/10/20 10:49 Room Air 11/10/20 10:00 Room Air 11/10/20 08:23 Room Air 11/10/20 08:22 79 167/68 11/10/20 08:00 Room Air 11/10/20 07:00 98.1 79 16 167/68 (101) 96 Room Air 98.1 11/10/20 06:28 18 Room Air 11/10/20 03:08 97.9 71 18 168/67 (100) 95 Room Air 97.9 11/10/20 00:26 18 11/09/20 23:56 18 Room Air 11/09/20 23:00 98.4 74 20 178/64 (102) 96 Room Air 98.4 11/09/20 20:00 Room Air 11/09/20 19:00 98.8 69 18 162/63 (96) 93 Room Air 98.8 11/09/20 17:21 Room Air 11/09/20 16:47 Room Air 11/09/20 16:47 79 166/56 11/09/20 15:00 99.7 79 16 166/56 (92) 94 Room Air 99.7 Labs Labs Laboratory Tests Test 11/09/20 16:45 11/09/20 23:17 11/10/20 05:41 11/10/20 06:23 Glucose (Fingerstick) 108 mg/dL (70-99) 147 mg/dL (70-99) 109 mg/dL (70-99) White Blood Count 4.1 x10^3/uL (4.0-11.0) Red Blood Count 3.28 x10^6/uL (3.50-5.40) Hemoglobin 10.5 g/dL (12.0-15.5) Hematocrit 32.4 % (36.0-47.0) Mean Corpuscular Volume 99 fL (79-100) Mean Corpuscular Hemoglobin 32 pg (25-35) Mean Corpuscular Hemoglobin Concent 32 g/dL (31-37) Red Cell Distribution Width 13.7 % (11.5-14.5) Platelet Count 122 x10^3/uL (140-400) Neutrophils (%) (Auto) 42 % (31-73) Lymphocytes (%) (Auto) 38 % (24-48) Monocytes (%) (Auto) 14 % (0-9) Eosinophils (%) (Auto) 5 % (0-3) Basophils (%) (Auto) 1 % (0-3) Neutrophils # (Auto) 1.7 x10^3/uL (1.8-7.7) Lymphocytes # (Auto) 1.6 x10^3/uL (1.0-4.8) Monocytes # (Auto) 0.6 x10^3/uL (0.0-1.1) Eosinophils # (Auto) 0.2 x10^3/uL (0.0-0.7) Basophils # (Auto) 0.0 x10^3/uL (0.0-0.2) Test 11/10/20 11:39 Glucose (Fingerstick) 107 mg/dL (70-99) Physical Exam Physical Exam Chest clear Abdomen soft, nontender, normal bowel sounds. Tender in the left flank or left CVA region. Assessment Assessment Left flank or left CVA tenderness. Along with her nausea and vomiting these could be related as a source. However initial imaging with CT and urinalysis at [facility] were unrevealing. As suggested yesterday I agree with renal ultrasound and will also repeat urinalysis. Recurrent nausea and vomiting. Some inflammation in the stomach on CT but this all could be secondary to her pain. Continue Protonix. Nonetheless if the symptoms persist, upper endoscopy would be warranted. Dr. Bansal will assume her GI care tomorrow and make decisions regarding EGD possibilities. Justicifation of Admission Dx: Justifications for Admission: Justification of Admission Dx: Yes Acute Renal Failure: 75% Reduction in GFR ROSARIO HANSON MD Nov 10, 2020 14:26
[2020-11-10 15:00] VITALS: BP 171/57
[2020-11-10 19:00] VITALS: BP 151/48
[2020-11-10] MEDS: PSYLLIUM HUSK (SUGAR FREE) 1 PKT PACKET PO SCH (20:21)
[2020-11-10 23:00] VITALS: BP 141/44
[2020-11-11 03:02] VITALS: BP 148/45
[2020-11-11] MEDS: HEPARIN for SUB-Q USE 5,000 UNIT/ML VIAL. SQ SCH ×3 (05:51→20:02)
--- NOTE | 2020-11-11 05:51 | NUR ---
Heparin for 0600 held, as potential for EGD today.
[2020-11-11] MEDS: INSULIN LISPRO 300 UNITS/3 ML VIAL. SQ SCH ×5 (06:00→21:30)
[2020-11-11 06:34] LABS: BILIRUBIN,URINE NEGATIVE (NEG); CLARITY,URINE CLEAR; COLOR,URINE YELLOW; NITRITE,URINE NEGATIVE (NEG); PROTEIN,URINE NEGATIVE (NEG-TRACE); UROBILINOGEN,URINE 0.2 mg/dL (0.2 mg/dL)
[2020-11-11 07:00] VITALS: BP 181/67
[2020-11-11 07:21] LABS: BACTERIA,URINE 0 /HPF (0-FEW); RBC,URINE 0 /HPF (0-2)
[2020-11-11] MEDS: PANTOPRAZOLE IV PUSH 40 MG VIAL. IVP SCH (08:11)
[2020-11-11] MEDS: DOCUSATE SODIUM 100 MG CAPSULE. PO SCH ×2 (08:31→19:56)
[2020-11-11] MEDS: POLYETHYLENE GLYCOL 3350 17 GM PACKET. PO SCH (08:32)
[2020-11-11] MEDS: MULTIVITAMIN I-VITE TABLET. PO SCH (08:32)
[2020-11-11] MEDS: SENNOSIDES/DOCUSATE 8.6/50MG TABLET. PO SCH ×2 (08:32→19:56)
[2020-11-11] MEDS: LOSARTAN POTASSIUM 50 MG TABLET. PO SCH (08:50)
[2020-11-11 08:59] LABS: CALCIUM 8.9 mg/dL (8.5-10.1); CREATININE 1.3 mg/dL (0.6-1.0); GFR 47.2; POTASSIUM 4.2 mmol/L (3.5-5.1)
[2020-11-11 11:00] VITALS: BP 185/67
--- NOTE | 2020-11-11 11:16 | NUR ---
SW following. Discussed with RN, pt from home with family, room air, NPO, Rapid COVID-19 negative. Pt having an EGD. RN assessing whether pt needs PT/OT ordered. SW will continue to follow.
[2020-11-11] MEDS ORDERED: IV RINGERS,LACTATED 1000ML 1,000 ML IV ONE (13:15)
[2020-11-11] MEDS ORDERED: LIDOCAINE 2% PF 5 ML VIAL. ONE (14:34)
[2020-11-11] MEDS ORDERED: PROPOFOL 10 MG/ML (20ML) VIAL. IV ONE (14:34)
--- NOTE | 2020-11-11 14:50 | PDOC4 ---
PROCEDURE Procedure EGD Indication: Nausea and vomiting. Meds: per anesthesia Findings: E--Less than Grade I esophagitis at 39cm. G--normal D--Normal to second portion. Yaya. well. IMP: Mild reflux esophagitis REG: Continue PPI. Await urine C and S. OK to feed as able. Anemia parameters. SUNDEEP VARGAS MD Nov 11, 2020 14:50
[2020-11-11] MEDS ORDERED: hydrALAZINE 20 MG/ML VIAL. IVP ONE (15:15)
[2020-11-11 15:52] VITALS: BP 190/73
--- NOTE | 2020-11-11 16:43 | PDOC ---
[employer] PROGRESS NOTE Date of Service DOS: DATE: 11/11/20 TIME: 16:42 Chief Complaint Chief Complaint Assessment/Plan Anemia of unknown origin, etiology undetermined, seems to be of chronic inflammation. Unlikely she is actively having a GI bleed nevertheless we will continue to follow recommendations from building consultant Reported nausea and vomiting currently has recurred Left CVA tenderness, no rash visible to think of zoster. We will request renal ultrasound in light of her renal dysfunction Elevated creatinine which may be due to chronic kidney disease stage IIIa at least essential hypertension fairly controlled DM type 2 dyslipidemia Plan: We will request hemoglobin A1c Symptoms control Liquid diet at the present time given her symptoms Resume home medications once available to resume oral intake Further recommendations based on clinical course DVT prophylaxis with SCDs based on history of possible GI bleeding History of Present Illness History of Present Illness History of Present Illness Patient is an 85-year-old female with multiple medical comorbidities that include hypertension diabetes iron deficiency anemia who was in her usual state of health until Wednesday when he started complaining of left CVA tenderness. The patient denied any urinary symptoms no dysuria no fever or chills were reported patient denied any nausea vomiting or diaphoresis reported either. She consulted her local emergency department and was admitted to [facility]. 11/10: Patient laying in bed in no acute distress. The patient had 3 emetic episodes during the evening. Patient denies hematemesis still complaining of epigastric pain which may be related to peptic ulcer disease. Patient still having left flank pain. No hematuria reported no radiation to the groin. Renal dysfunction noted upon admission we will request renal ultrasound for today. Plan of care explained detail all concerns addressed to the best my abilities 11/11/2020 No acute events overnight. Patient plan for EGD today pending final reports. Patient's chart, labs, images were reviewed and discussed with RN Vitals/I&O Vitals/I&O: Vital Signs Date Time Temp Pulse Resp B/P (MAP) Pulse Ox O2 Delivery O2 Flow Rate FiO2 11/11/20 15:52 98.6 89 18 190/73 (112) 100 Room Air 98.6 11/11/20 14:50 2 I & O 11/10/20 11/10/20 11/11/20 15:00 23:00 07:00 Intake Total 340 ml 220 ml Balance 340 ml 220 ml Physical Exam General: Alert, Oriented X3, Cooperative Heart: Regular rate, Normal S1, Normal S2 Abdomen: Normal bowel sounds, Soft, No tenderness, No hepatosplenomegaly, No masses Extremities: No clubbing, No cyanosis Labs Labs: Laboratory Tests Test 11/10/20 18:14 11/10/20 23:55 11/11/20 05:00 11/11/20 06:17 Glucose (Fingerstick) 134 mg/dL (70-99) 117 mg/dL (70-99) 119 mg/dL (70-99) Urine Collection Type Unknown Urine Color Yellow Urine Clarity Clear Urine pH 5.0 (<5.0-8.0) Urine Specific [place] 1.015 (1.000-1.030) Urine Protein Negative mg/dL (NEG-TRACE) Urine Glucose (UA) Negative mg/dL (NEG) Urine Ketones (Stick) Trace mg/dL (NEG) Urine Blood Negative (NEG) Urine Nitrite Negative (NEG) Urine Bilirubin Negative (NEG) Urine Urobilinogen Dipstick 0.2 mg/dL (0.2 mg/dL) Urine Leukocyte Esterase Small (NEG) Urine RBC 0 /HPF (0-2) Urine WBC 1-4 /HPF (0-4) Urine Squamous Epithelial Cells Few /LPF Urine Bacteria 0 /HPF (0-FEW) Urine Mucus Slight /LPF Test 11/11/20 07:46 11/11/20 11:35 Sodium Level 144 mmol/L (136-145) Potassium Level 4.2 mmol/L (3.5-5.1) Chloride Level 109 mmol/L (98-107) Carbon Dioxide Level 27 mmol/L (21-32) Anion Gap 8 (6-14) Blood Urea Nitrogen 14 mg/dL (7-20) Creatinine 1.3 mg/dL (0.6-1.0) Estimated GFR (Cockcroft-Gault) 47.2 Glucose Level 103 mg/dL (70-99) Calcium Level 8.9 mg/dL (8.5-10.1) Iron Level 24 ug/dL (50-170) Total Iron Binding Capacity 265 ug/dL (250-450) Iron Saturation 9 % (15-34) Vitamin B12 Level > 2000 pg/mL (247-911) Glucose (Fingerstick) 109 mg/dL (70-99) Comment Review of Relevant I have reviewed the following items maximilian (where applicable) has been applied. Medications: Current Medications Medications (Trade) Dose Ordered Sig/Karel Route PRN Reason Start Time Stop Time Status Last Admin Dose Admin Ringer's Solution 1,000 ml @ 75 mls/hr 1X ONCE IV 11/11/20 13:15 11/12/20 02:34 11/11/20 14:38 Hydralazine HCl (Apresoline Inj) 10 mg 1X ONCE IVP 11/11/20 15:15 11/11/20 15:16 DC 11/11/20 15:29 Justifications for Admission Abdominal Pain Indications Is patient in severe pain?: Yes Is NPO status required?: Yes Justification for admission: Patient may require to be NPO for greater 24hours making it medically necessary to manage patient as inpatient. Other Justification HUMA DIAZ MD Nov 11, 2020 16:43
[2020-11-11 19:00] VITALS: BP 128/38
[2020-11-11] MEDS: ZOLPIDEM 5 MG TABLET. PO PRN (19:56)
[2020-11-11] MEDS: HYDROcodone/APAP 5/325MG 1 TAB TABLET PO PRN (19:57)
[2020-11-11] MEDS: PSYLLIUM HUSK (SUGAR FREE) 1 PKT PACKET PO SCH (21:00)
[2020-11-11 23:00] VITALS: BP 139/62
[2020-11-12 03:00] VITALS: BP 132/51
[2020-11-12] MEDS: PANTOPRAZOLE IV PUSH 40 MG VIAL. IVP SCH (05:48)
[2020-11-12] MEDS: HEPARIN for SUB-Q USE 5,000 UNIT/ML VIAL. SQ SCH ×3 (05:52→21:40)
[2020-11-12 07:00] VITALS: BP 160/60
[2020-11-12] MEDS: INSULIN LISPRO 300 UNITS/3 ML VIAL. SQ SCH ×4 (08:00→20:50)
[2020-11-12] MEDS: MULTIVITAMIN I-VITE TABLET. PO SCH (08:28)
[2020-11-12] MEDS: SENNOSIDES/DOCUSATE 8.6/50MG TABLET. PO SCH ×2 (08:28→21:38)
[2020-11-12] MEDS: DOCUSATE SODIUM 100 MG CAPSULE. PO SCH ×2 (08:28→21:38)
[2020-11-12] MEDS: POLYETHYLENE GLYCOL 3350 17 GM PACKET. PO SCH (08:28)
[2020-11-12] MEDS: LOSARTAN POTASSIUM 50 MG TABLET. PO SCH (08:28)
--- NOTE | 2020-11-12 09:57 | PDOC ---
Date of Service: DATE: 11/12/20 TIME: 09:53 Subjective: Subjective: Left-sided pain resolved. Tolerated breakfast. Feels well enough to go home but also has right hip pain now. Objective: Vital Signs: Vital Signs Date Time Temp Pulse Resp B/P (MAP) Pulse Ox O2 Delivery O2 Flow Rate FiO2 11/12/20 08:28 73 160/60 11/12/20 08:00 Room Air 11/12/20 07:00 97.9 17 95 97.9 11/11/20 14:50 2 Labs: Laboratory Tests Test 11/11/20 11:35 11/11/20 18:05 11/11/20 21:07 Glucose (Fingerstick) 109 mg/dL (70-99) 165 mg/dL (70-99) 200 mg/dL (70-99) Imaging: EGD 11/11 Indication: Nausea and vomiting. E--Less than Grade I esophagitis at 39cm. G--normal D--Normal to second portion. IMP: Mild reflux esophagitis REG: Continue PPI. Await urine C and S. OK to feed as able. Anemia parameters. PE: GEN: NAD - sitting on edge of bed LUNGS: CTAB HEART: RRR ABD: S/ND/NT NEURO/PSYCH: A & O 3 A/P: N/v, left-sided pain - resolved YONI - iron BID on summary list Mild GERD CRC screen - last ~4 years ago -- Continue PPI - change to PO. ?taking iron at home? No stools charted - looks like she declines Metamucil, Miralax, etc. Justicifation of Admission Dx: Justifications for Admission: Justification of Admission Dx: Yes Acute Renal Failure: 75% Reduction in GFR HUI SINGH Nov 12, 2020 09:57
[2020-11-12 11:00] VITALS: BP 149/54
--- NOTE | 2020-11-12 11:19 | DISCH ---
DISCHARGE INSTRUCTIONS Condition on Discharge Condition on Discharge: Stable Activity After Discharge Activity Instructions for Disc: Activity as tolerated Diet after Discharge Diet after Discharge: GI Soft Contacting the DR. after DC Call your doctor for: If your condition worsens Follow-Up Follow up with: PCP within 2 weeks Follow Up With: GI as needed HUMA DIAZ MD Nov 12, 2020 11:19
[2020-11-12] MEDS: FERROUS SULFATE 325 MG TABLET. PO SCH ×2 (11:57→17:00)
[2020-11-12] MEDS: HYDROcodone/APAP 5/325MG 1 TAB TABLET PO PRN ×2 (13:24→21:43)
[2020-11-12 15:00] VITALS: BP 164/56
[2020-11-12 15:00] LABS: CALCIUM 9.2 mg/dL (8.5-10.1); CREATININE 1.7 mg/dL (0.6-1.0); GFR 34.6
--- NOTE | 2020-11-12 15:16 | PDOC ---
[employer] PROGRESS NOTE Date of Service DOS: DATE: 11/12/20 TIME: 15:15 Chief Complaint Chief Complaint Assessment/Plan Anemia of unknown origin, etiology undetermined, seems to be of chronic inflammation. Unlikely she is actively having a GI bleed nevertheless we will continue to follow recommendations from spa consultant Reported nausea and vomiting currently has recurred Left CVA tenderness, no rash visible to think of zoster. We will request renal ultrasound in light of her renal dysfunction Elevated creatinine which may be due to chronic kidney disease stage IIIa at least essential hypertension fairly controlled DM type 2 dyslipidemia Plan: We will request hemoglobin A1c Symptoms control Liquid diet at the present time given her symptoms Resume home medications once available to resume oral intake Further recommendations based on clinical course DVT prophylaxis with SCDs based on history of possible GI bleeding History of Present Illness History of Present Illness History of Present Illness Patient is an 85-year-old female with multiple medical comorbidities that include hypertension diabetes iron deficiency anemia who was in her usual state of health until Wednesday when he started complaining of left CVA tenderness. The patient denied any urinary symptoms no dysuria no fever or chills were reported patient denied any nausea vomiting or diaphoresis reported either. She consulted her local emergency department and was admitted to [facility]. 11/10: Patient laying in bed in no acute distress. The patient had 3 emetic episodes during the evening. Patient denies hematemesis still complaining of epigastric pain which may be related to peptic ulcer disease. Patient still having left flank pain. No hematuria reported no radiation to the groin. Renal dysfunction noted upon admission we will request renal ultrasound for today. Plan of care explained detail all concerns addressed to the best my abilities 11/11/2020 No acute events overnight. Patient plan for EGD today pending final reports. Patient's chart, labs, images were reviewed and discussed with RN 11/12/2020 No acute events overnight. Patient is tolerating diet. Encourage fluid intake as patient's creatinine bumped from 1.3-1.7. Patient does have history of chronic kidney disease. Will consult nephrology for evaluation anticipate discharge in the next 24 hours. Will observe overnight after encouraging fluid intake. Patient's chart, labs, images were reviewed and discussed with RN Vitals/I&O Vitals/I&O: Vital Signs Date Time Temp Pulse Resp B/P (MAP) Pulse Ox O2 Delivery O2 Flow Rate FiO2 11/12/20 14:47 Room Air 11/12/20 11:00 98.3 87 17 149/54 (85) 96 98.3 11/11/20 14:50 2 I & O 11/11/20 11/11/20 11/12/20 15:00 23:00 07:00 Intake Total 360 ml 670 ml Balance 360 ml 670 ml Physical Exam General: Alert, Oriented X3, Cooperative Heart: Regular rate, Normal S1, Normal S2 Abdomen: Normal bowel sounds, Soft, No tenderness, No hepatosplenomegaly, No masses Extremities: No clubbing, No cyanosis Labs Labs: Laboratory Tests Test 11/11/20 18:05 11/11/20 21:07 11/12/20 07:50 11/12/20 11:25 Glucose (Fingerstick) 165 mg/dL (70-99) 200 mg/dL (70-99) 99 mg/dL (70-99) 203 mg/dL (70-99) Test 11/12/20 14:20 Sodium Level 144 mmol/L (136-145) Potassium Level 4.0 mmol/L (3.5-5.1) Chloride Level 108 mmol/L (98-107) Carbon Dioxide Level 28 mmol/L (21-32) Anion Gap 8 (6-14) Blood Urea Nitrogen 20 mg/dL (7-20) Creatinine 1.7 mg/dL (0.6-1.0) Estimated GFR (Cockcroft-Gault) 34.6 Glucose Level 104 mg/dL (70-99) Calcium Level 9.2 mg/dL (8.5-10.1) Magnesium Level 2.0 mg/dL (1.8-2.4) Comment Review of Relevant I have reviewed the following items maximilian (where applicable) has been applied. Medications: Current Medications Medications (Trade) Dose Ordered Sig/Karel Route PRN Reason Start Time Stop Time Status Last Admin Dose Admin Insulin Human Lispro (HumaLOG) 0-7 UNITS TIDWMEALHC SQ 11/11/20 21:30 11/12/20 12:00 Ferrous Sulfate (Feosol) 325 mg BIDWMEALS PO 11/12/20 10:30 11/12/20 11:57 Justifications for Admission Abdominal Pain Indications Is patient in severe pain?: Yes Is NPO status required?: Yes Justification for admission: Patient may require to be NPO for greater 24hours making it medically necessary to manage patient as inpatient. Other Justification HUMA DIAZ MD Nov 12, 2020 15:16
[2020-11-12 19:00] VITALS: BP 154/48
[2020-11-12] MEDS: PSYLLIUM HUSK (SUGAR FREE) 1 PKT PACKET PO SCH (21:00)
[2020-11-12 23:04] VITALS: BP 160/55
[2020-11-13 03:00] VITALS: BP 139/47
[2020-11-13 07:00] VITALS: BP 153/58
[2020-11-13] MEDS: HEPARIN for SUB-Q USE 5,000 UNIT/ML VIAL. SQ SCH ×3 (07:18→22:10)
[2020-11-13] MEDS: INSULIN LISPRO 300 UNITS/3 ML VIAL. SQ SCH ×4 (08:00→21:00)
[2020-11-13] MEDS: SENNOSIDES/DOCUSATE 8.6/50MG TABLET. PO SCH ×2 (08:36→21:00)
[2020-11-13] MEDS: MULTIVITAMIN I-VITE TABLET. PO SCH (08:36)
[2020-11-13] MEDS: PANTOPRAZOLE 40 MG TABLET.DR. PO SCH (08:37)
[2020-11-13] MEDS: POLYETHYLENE GLYCOL 3350 17 GM PACKET. PO SCH (08:37)
[2020-11-13] MEDS: LOSARTAN POTASSIUM 50 MG TABLET. PO SCH (08:37)
[2020-11-13] MEDS: FERROUS SULFATE 325 MG TABLET. PO SCH ×2 (08:37→17:56)
[2020-11-13] MEDS: DOCUSATE SODIUM 100 MG CAPSULE. PO SCH ×2 (08:37→22:05)
--- NOTE | 2020-11-13 09:55 | PDOC ---
Date of Service: DATE: 11/13/20 TIME: 09:52 Subjective: Subjective: Right hip pain w/ movement. No GI complaints. Eating better. No vomiting. Objective: Objective: Nurse called yesterday afternoon to tell me about right hip pain and to ask if she should remain inpt. Deferred to primary. Vital Signs: Vital Signs Date Time Temp Pulse Resp B/P (MAP) Pulse Ox O2 Delivery O2 Flow Rate FiO2 11/13/20 08:37 88 153/58 11/13/20 07:00 99.3 18 95 Room Air 99.3 Labs: Laboratory Tests Test 11/12/20 11:25 11/12/20 14:20 11/12/20 16:57 11/12/20 20:38 Glucose (Fingerstick) 203 mg/dL 121 mg/dL 169 mg/dL Sodium Level 144 mmol/L Potassium Level 4.0 mmol/L Chloride Level 108 mmol/L Carbon Dioxide Level 28 mmol/L Anion Gap 8 Blood Urea Nitrogen 20 mg/dL Creatinine 1.7 mg/dL Estimated GFR (Cockcroft-Gault) 34.6 Glucose Level 104 mg/dL Calcium Level 9.2 mg/dL Magnesium Level 2.0 mg/dL Test 11/13/20 08:01 Glucose (Fingerstick) 136 mg/dL PE: GEN: NAD LUNGS: CTAB HEART: RRR ABD: NABS, S/ND/NT NEURO/PSYCH: A & O 3 A/P: Right hip pain, UTI, ROSALIA YONI Mild GERD CRC screen - last ~4 years ago -- Continue PPI and iron, consider outpt colonoscopy. DC per primary. Justicifation of Admission Dx: Justifications for Admission: Justification of Admission Dx: Yes Acute Renal Failure: 75% Reduction in GFR HUI SINGH Nov 13, 2020 09:55
[2020-11-13 11:00] VITALS: BP 166/78
[2020-11-13] MEDS: LIDOCAINE (700MG/PATCH) PATCH. TD SCH (11:09)
[2020-11-13 11:31] LABS: CALCIUM 9.1 mg/dL (8.5-10.1); CREATININE 1.4 mg/dL (0.6-1.0); GFR 43.3; PHOSPHORUS 2.1 mg/dL (2.6-4.7)
--- NOTE | 2020-11-13 13:29 | PDOC ---
[employer] PROGRESS NOTE Date of Service DOS: DATE: 11/13/20 TIME: 13:26 Chief Complaint Chief Complaint Assessment/Plan Anemia of unknown origin, etiology undetermined, seems to be of chronic inflammation. Unlikely she is actively having a GI bleed nevertheless we will continue to follow recommendations from erp consultant Reported nausea and vomiting currently has recurred Left CVA tenderness, no rash visible to think of zoster. We will request renal ultrasound in light of her renal dysfunction Elevated creatinine which may be due to chronic kidney disease stage IIIa at least essential hypertension fairly controlled DM type 2 dyslipidemia Plan: We will request hemoglobin A1c Symptoms control Liquid diet at the present time given her symptoms Resume home medications once available to resume oral intake Further recommendations based on clinical course DVT prophylaxis with SCDs based on history of possible GI bleeding History of Present Illness History of Present Illness History of Present Illness Patient is an 85-year-old female with multiple medical comorbidities that include hypertension diabetes iron deficiency anemia who was in her usual state of health until Wednesday when he started complaining of left CVA tenderness. The patient denied any urinary symptoms no dysuria no fever or chills were reported patient denied any nausea vomiting or diaphoresis reported either. She consulted her local emergency department and was admitted to [facility]. 11/10: Patient laying in bed in no acute distress. The patient had 3 emetic episodes during the evening. Patient denies hematemesis still complaining of epigastric pain which may be related to peptic ulcer disease. Patient still having left flank pain. No hematuria reported no radiation to the groin. Renal dysfunction noted upon admission we will request renal ultrasound for today. Plan of care explained detail all concerns addressed to the best my abilities 11/11/2020 No acute events overnight. Patient plan for EGD today pending final reports. Patient's chart, labs, images were reviewed and discussed with RN 11/12/2020 No acute events overnight. Patient is tolerating diet. Encourage fluid intake as patient's creatinine bumped from 1.3-1.7. Patient does have history of chronic kidney disease. Will consult nephrology for evaluation anticipate discharge in the next 24 hours. Will observe overnight after encouraging fluid intake. Patient's chart, labs, images were reviewed and discussed with RN 11/13/2020 No acute events overnight. Patient does complain of right hip pain. Worse during ambulation and movement. Creatinine function improved. Tolerating diet without any nausea vomiting episodes. Patient's chart, labs, images were reviewed and discussed with RN Vitals/I&O Vitals/I&O: Vital Signs Date Time Temp Pulse Resp B/P (MAP) Pulse Ox O2 Delivery O2 Flow Rate FiO2 11/13/20 11:00 99.5 57 16 166/78 (107) 98 Room Air 99.5 I & O 11/12/20 11/12/20 11/13/20 15:00 23:00 07:00 Intake Total 260 ml 200 ml 400 ml Balance 260 ml 200 ml 400 ml Physical Exam General: Alert, Oriented X3, Cooperative Heart: Regular rate, Normal S1, Normal S2 Abdomen: Normal bowel sounds, Soft, No tenderness, No hepatosplenomegaly, No masses Extremities: No clubbing, No cyanosis Labs Labs: Laboratory Tests Test 11/12/20 14:20 11/12/20 16:57 11/12/20 20:38 11/13/20 08:01 Sodium Level 144 mmol/L (136-145) Potassium Level 4.0 mmol/L (3.5-5.1) Chloride Level 108 mmol/L (98-107) Carbon Dioxide Level 28 mmol/L (21-32) Anion Gap 8 (6-14) Blood Urea Nitrogen 20 mg/dL (7-20) Creatinine 1.7 mg/dL (0.6-1.0) Estimated GFR (Cockcroft-Gault) 34.6 Glucose Level 104 mg/dL (70-99) Calcium Level 9.2 mg/dL (8.5-10.1) Magnesium Level 2.0 mg/dL (1.8-2.4) Glucose (Fingerstick) 121 mg/dL (70-99) 169 mg/dL (70-99) 136 mg/dL (70-99) Test 11/13/20 10:40 11/13/20 11:24 Sodium Level 144 mmol/L (136-145) Potassium Level 4.0 mmol/L (3.5-5.1) Chloride Level 109 mmol/L (98-107) Carbon Dioxide Level 27 mmol/L (21-32) Anion Gap 8 (6-14) Blood Urea Nitrogen 20 mg/dL (7-20) Creatinine 1.4 mg/dL (0.6-1.0) Estimated GFR (Cockcroft-Gault) 43.3 Glucose Level 166 mg/dL (70-99) Calcium Level 9.1 mg/dL (8.5-10.1) Phosphorus Level 2.1 mg/dL (2.6-4.7) Magnesium Level 2.0 mg/dL (1.8-2.4) Glucose (Fingerstick) 146 mg/dL (70-99) Comment Review of Relevant I have reviewed the following items maximilian (where applicable) has been applied. Medications: Current Medications Medications (Trade) Dose Ordered Sig/Karel Route PRN Reason Start Time Stop Time Status Last Admin Dose Admin Pantoprazole Sodium (Protonix) 40 mg DAILYAC PO 11/13/20 07:30 11/13/20 08:37 Lidocaine (Lidoderm) 1 patch DAILY TD 11/13/20 09:00 11/13/20 11:09 Justifications for Admission Abdominal Pain Indications Is patient in severe pain?: Yes Is NPO status required?: Yes Justification for admission: Patient may require to be NPO for greater 24hours making it medically necessary to manage patient as inpatient. Other Justification HUMA DIAZ MD Nov 13, 2020 13:29
[2020-11-13] MEDS ORDERED: BUPIVACAINE MPF 0.25% 10 ML VIAL. IJ ONE (13:45)
[2020-11-13] MEDS ORDERED: methylPREDNISolone ACETATE 40 MG/ML VIAL. IM ONE (13:45)
--- NOTE | 2020-11-13 14:22 | PDOC4 ---
PROCEDURE Procedure At her request,I have injected painful right sacroiliac joint area with 2 ml of bupivacaine ).25% solution mixed with 1 ml of depo-medrol 40 mg/ 1 ml solution under aseptic skin technique using alcohol skin prep and she tolerated the procedure satisfactorily without any side effects. LUZ CORTEZ MD Nov 13, 2020 14:22
[2020-11-13 15:00] VITALS: BP 159/59
--- NOTE | 2020-11-13 17:09 | RAD ---
Examination: 1. Right shoulder 3 views. 2. Single view lumbar spine. 3. Pelvis and right hip 3 views. 4. AP bilateral standing knees. INDICATION: Right shoulder pain, acute low back pain, right hip pain and painful DJD of both knee jamshid nts. COMPARISON: No relevant comparisons currently available. FINDINGS: AP internal rotation, AP external rotation, and scapular Y views of the right shoulder show no fractu re or dislocation but marked subacromial joint space narrowing best illustrated on axial rotation, singer ggesting rotator cuff pathology. There are osteophytic spurs at the inferior aspect of the acromion. The acromioclavicular joint is in good alignment. Soft tissues show no pathologic calcifications or o ther unexpected findings. Single lateral view lumbar spine shows 5 lumbar type vertebrae with subtle anterolisthesis of L4 on L 5 and minimal retrolisthesis of L1 on L2. Vertebral body heights are preserved. No fracture or aggres sive osseous lesions are seen. There is moderate disc space narrowing at L1-L2 and to a lesser extent at L2-L3 and L3-L4. Facet hypertrophic changes at L4-L5 and L5-S1 are present, resulting in no signi ficant bony foraminal stenosis. The extraspinal soft tissues show aortic calcifications and moderate stool in the visualized large bowel. AP pelvis, AP view right hip, and frog-leg view right hip show an intact pelvic ring with no acute fr acture or hip dislocation. Soft tissues are unremarkable. Bilateral standing AP knees shows bilateral medial joint space narrowing and osteophytic spurring in the lateral compartment of the left knee. There are enthesophytes on the lateral aspect of the left g reater than right patella superior pole near the quadriceps attachment. Soft tissues show left greate r than right facial venous varices. No fracture or aggressive osseous lesions. IMPRESSION: 1. Right rotator cuff pathology. No fracture or dislocation. 2. Lumbar spinal degenerative changes with no fracture or aggressive bony lesions. 3. Intact pelvis and right hip. No fracture or dislocation. 4. Bilateral knee medial joint space predominant degenerative change and venous varices. Electronically signed by: Rai Pires MD (11/13/2020 5:07 PM) [id number]
--- NOTE | 2020-11-13 17:42 | PDOC2 ---
CONSULT Date of Consult Date of Consult DATE: 11/13/20 TIME: 17:31 Reason for Consult Reason for Consult: RENAL FAILURE Referring Physician Referring Physician: ANGELICA History of Present Illness Reason for Visit: THIS IS AN 85 YR OLD WITH LEFT SIDED CVA TENDERNESS. RENAL SONO WAS NEG FOR ANY ACUTE FINDINGS. NO FEVERS. UA IS NEG. CR IS 1.7. REVIEW OF OLD RECORDS SHOWED A CR OF 1.7 C/W STAGE 3 CKD. HER RENAL FXN IS STABLE. CKD DUE TO HTN AND DM II. GI EVALUATION ONGOING. Past Medical History Cardiovascular: HTN, Hyperlipidemia Renal/: Chronic renal insuff Endocrine: Diabetes Past Surgical History Past Surgical History: No pertinent history Family History Family History: No Significant Social History No ALCOHOL: none Drugs: None Lives: with Family Current Medications Current Medications Current Medications Sodium Chloride 1,000 ml @ 100 mls/hr Q10H IV Last administered on 11/09/20at 23:49; Start 11/08/20 at 20:45; Stop 11/10/20 at 07:52; Status DC Ondansetron HCl (Zofran) 4 mg PRN Q6HRS PRN IVP NAUSEA/VOMITING Last administered on 11/08/20at 21:05; Start 11/08/20 at 20:45; Stop 11/09/20 at 10:08; Status DC Morphine Sulfate (Morphine Sulfate) 2 mg PRN Q1HR PRN IV PAIN Last administered on 11/09/20at 03:34; Start 11/08/20 at 20:45; Stop 11/09/20 at 10:18; Status DC Bisacodyl (Dulcolax Supp) 10 mg PRN DAILY PRN MI CONSTIPATION; Start 11/08/20 at 20:45; Stop 11/09/20 at 10:17; Status DC Heparin Sodium (Porcine) (Heparin Sodium) 5,000 unit Q8HRS SQ Last administered on 11/13/20at 15:50; Start 11/08/20 at 22:00 Acetaminophen (Tylenol Supp) 650 mg PRN Q6HRS PRN MI MILD PAIN / TEMP > 100.3'F; Start 11/08/20 at 20:45 Insulin Human Lispro (HumaLOG) 0-7 UNITS Q6HRS SQ ; Start 11/09/20 at 00:00; Stop 11/11/20 at 21:26; Status DC Dextrose (Dextrose 50%-Water Syringe) 12.5 gm PRN Q15MIN PRN IV SEE COMMENTS; Start 11/08/20 at 20:45 Metoclopramide HCl (Reglan Vial) 10 mg PRN Q6HRS PRN IVP NAUSEA/VOMITING-2ND CHOICE Last administered on 11/10/20at 20:29; Start 11/08/20 at 20:45 Multivitamins/ Minerals (I-Marily) 1 tab DAILY PO Last administered on 11/13/20at 08:36; Start 11/09/20 at 09:00 Losartan Potassium (Cozaar) 100 mg DAILY PO Last administered on 11/13/20 08:37; Start 11/09/20 at 09:00 Psyllium Hydrophilic Mucilloid (Metamucil Fiber Packet) 1 pkt QHS PO Last administered on 11/09/20at 23:55; Start 11/08/20 at 21:30 Olanzapine (ZyPREXA ZYDIS) 5 mg PRN BID PRN PO ANXIETY / AGITATION Last administered on 11/11/20at 19:56; Start 11/08/20 at 21:30 Polyethylene Glycol (miraLAX PACKET) 17 gm DAILY PO Last administered on 11/10/20at 08:23; Start 11/09/20 at 09:00 Senna/Docusate Sodium (Senna Plus) 2 tab PRN BID PRN PO CONSTIPATION; Start 11/08/20 at 21:30; Stop 11/09/20 at 10:18; Status DC Ringer's Solution 1,000 ml @ 75 mls/hr [id number] IV Last administered on 11/09/20at 10:29; Start 11/09/20 at 10:15; Stop 11/09/20 at 23:34; Status DC Ondansetron HCl (Zofran) 4 mg PRN Q6HRS PRN IVP NAUSEA/VOMITING Last administered on 11/10/20at 10:40; Start 11/09/20 at 10:15 Prochlorperazine (Compazine) 25 mg PRN Q12HR PRN MI NAUSEA/VOMITING; Start 11/09/20 at 10:15 Calcium Carbonate/ Glycine (Tums) 500 mg PRN Q3HRS PRN PO UPSET STOMACH; Start 11/09/20 at 10:15 Zolpidem Tartrate (Ambien) 5 mg PRN QHS PRN PO INSOMNIA, MAY REPEAT IN 1HR Last administered on 11/11/20at 19:56; Start 11/09/20 at 10:15 Info (Non-Icu Electrolyte Protocol) 1 ea PRN DAILY PRN MC SEE COMMENTS; Start 11/09/20 at 10:15 Morphine Sulfate (Morphine Sulfate) 2 mg PRN Q1HR PRN IV PAIN MILD TO MOD Last administered on 11/10/20at 20:29; Start 11/09/20 at 10:15 Acetaminophen/ Hydrocodone Bitart (Lortab 5/325) 1 tab PRN Q4HRS PRN PO MILD PAIN 1-3 Last administered on 11/12/20at 21:43; Start 11/09/20 at 10:15 Acetaminophen (Tylenol) 650 mg PRN Q6HRS PRN PO Headaches, Temp > 101.5F; Start 11/09/20 at 10:15 Senna/Docusate Sodium (Senna Plus) 1 tab BID PO Last administered on 11/13/20at 08:36; Start 11/09/20 at 21:00 Docusate Sodium (Colace) 100 mg BID PO Last administered on 11/13/20at 08:37; Start 11/09/20 at 21:00 Lactulose (Lactulose) 20 gm PRN Q12HR PRN PO CONSTIPATION; Start 11/09/20 at 10:15 Bisacodyl (Dulcolax Supp) 10 mg PRN DAILY PRN MI CONSTIPATION; Start 11/09/20 at 10:15 Pantoprazole Sodium (PROTONIX VIAL for IV PUSH) 40 mg DAILYAC IVP Last administered on 11/12/20at 05:48; Start 11/10/20 at 07:30; Stop 11/12/20 at 09:58; Status DC Prochlorperazine Edisylate (Compazine) 10 mg PRN Q6HRS PRN IM NAUSEA/VOMITING; Start 11/10/20 at 11:15; Stop 11/10/20 at 11:16; Status DC Prochlorperazine Edisylate (Compazine) 10 mg PRN Q6HRS PRN IVP NAUSEA/VOMITING, 3RD CHOICE Last administered on 11/10/20at 11:22; Start 11/10/20 at 11:15 Hydralazine HCl (Apresoline Inj) 10 mg PRN Q4HRS PRN IVP ELEVATED BP, SEE COMMENTS; Start 11/10/20 at 12:45 Labetalol HCl (Normodyne Iv Push) 20 mg 1X ONCE IVP Last administered on 11/10/20at 15:27; Start 11/10/20 at 12:45; Stop 11/10/20 at 12:46; Status DC Ringer's Solution 1,000 ml @ 75 mls/hr 1X ONCE IV Last administered on 11/11/20at 14:38; Start 11/11/20 at 13:15; Stop 11/12/20 at 02:34; Status DC Propofol (Diprivan) 200 mg STK-MED ONCE IV ; Start 11/11/20 at 14:34; Stop 11/11/20 at 14:34; Status DC Lidocaine HCl (Lidocaine Pf 2% Vial) 5 ml STK-MED ONCE .ROUTE ; Start 11/11/20 at 14:34; Stop 11/11/20 at 14:34; Status DC Hydralazine HCl (Apresoline Inj) 10 mg 1X ONCE IVP Last administered on 11/11/20at 15:29; Start 11/11/20 at 15:15; Stop 11/11/20 at 15:16; Status DC Insulin Human Lispro (HumaLOG) 0-7 UNITS TIDWMEALHC SQ Last administered on 11/12/20at 12:00; Start 11/11/20 at 21:30 Pantoprazole Sodium (Protonix) 40 mg DAILYAC PO Last administered on 11/13/20at 08:37; Start 11/13/20 at 07:30 Ferrous Sulfate (Feosol) 325 mg BIDWMEALS PO Last administered on 11/13/20at 08:37; Start 11/12/20 at 10:30 Lidocaine (Lidoderm) 1 patch DAILY TD Last administered on 11/13/20at 11:09; Start 11/13/20 at 09:00 Miscellaneous ([facility]oderm [facility] Removal) [facility] ; Start 11/13/20 at 21:00 Methylprednisolone Acetate (DEPO-Medrol 40MG VIAL) 40 mg 1X ONCE IM Last administered on 11/13/20at 14:15; Start 11/13/20 at 13:45; Stop 11/13/20 at 13:51; Status DC Bupivacaine HCl (Sensorcaine-Mpf 0.25%) 10 ml 1X ONCE IJ Last administered on 11/13/20at 14:15; Start 11/13/20 at 13:45; Stop 11/13/20 at 13:51; Status DC Active Scripts Active Reported Iron (Ferrous Sulfate) 325 Mg Tablet 325 Mg PO BID Diovan (Valsartan) 160 Mg Tablet 160 Mg PO DAILY Actos (Pioglitazone Hcl) 15 Mg Tablet 15 Mg PO DAILY Ocuvite Tablet (Vit A,C & E/Lutein/Minerals) 1 Each Tablet 1 Tab PO DAILY 30 Days Glimepiride 2 Mg Tablet 2 Mg PO DAILY Allergies Allergies: Coded Allergies: Sulfa (Sulfonamide Antibiotics) (Verified Allergy, Intermediate, rash, 11/11/20) ROS General: YES: Fatigue PSYCHOLOGICAL ROS: YES: Anxiety Eyes: Yes Decreased vision HEENT: YES: Heacaches Gastrointestinal: Yes Nausea Genitourinary: YES Flank Pain Musculoskeletal: Yes Muscular Weakness Neurological: Yes Weakness Skin: Yes Dry Skin Physical Exam General: Alert, Cooperative, No acute distress HEENT: Atraumatic, PERRLA Lungs: Clear to auscultation Heart: Regular rate Abdomen: Normal bowel sounds, Soft, No tenderness Extremities: No clubbing Skin: No breakdown Neuro: Normal speech Psych/Mental Status: Mood NL MUSCULOSKELETAL: No joint tenderness, No deformity Vitals VITALS Vital Signs Date Time Temp Pulse Resp B/P (MAP) Pulse Ox O2 Delivery O2 Flow Rate FiO2 11/13/20 15:00 99.8 85 18 159/59 (92) 98 Room Air 99.8 Labs Labs Laboratory Tests Test 11/11/20 18:05 11/11/20 21:07 11/12/20 07:50 11/12/20 11:25 Glucose (Fingerstick) 165 mg/dL (70-99) 200 mg/dL (70-99) 99 mg/dL (70-99) 203 mg/dL (70-99) Test 11/12/20 14:20 11/12/20 16:57 11/12/20 20:38 11/13/20 08:01 Sodium Level 144 mmol/L (136-145) Potassium Level 4.0 mmol/L (3.5-5.1) Chloride Level 108 mmol/L (98-107) Carbon Dioxide Level 28 mmol/L (21-32) Anion Gap 8 (6-14) Blood Urea Nitrogen 20 mg/dL (7-20) Creatinine 1.7 mg/dL (0.6-1.0) Estimated GFR (Cockcroft-Gault) 34.6 Glucose Level 104 mg/dL (70-99) Calcium Level 9.2 mg/dL (8.5-10.1) Magnesium Level 2.0 mg/dL (1.8-2.4) Glucose (Fingerstick) 121 mg/dL (70-99) 169 mg/dL (70-99) 136 mg/dL (70-99) Test 11/13/20 10:40 11/13/20 11:24 11/13/20 16:47 Sodium Level 144 mmol/L (136-145) Potassium Level 4.0 mmol/L (3.5-5.1) Chloride Level 109 mmol/L (98-107) Carbon Dioxide Level 27 mmol/L (21-32) Anion Gap 8 (6-14) Blood Urea Nitrogen 20 mg/dL (7-20) Creatinine 1.4 mg/dL (0.6-1.0) Estimated GFR (Cockcroft-Gault) 43.3 Glucose Level 166 mg/dL (70-99) Calcium Level 9.1 mg/dL (8.5-10.1) Phosphorus Level 2.1 mg/dL (2.6-4.7) Magnesium Level 2.0 mg/dL (1.8-2.4) Glucose (Fingerstick) 146 mg/dL (70-99) 169 mg/dL (70-99) Laboratory Tests Test 11/12/20 20:38 11/13/20 08:01 11/13/20 10:40 11/13/20 11:24 Glucose (Fingerstick) 169 mg/dL (70-99) 136 mg/dL (70-99) 146 mg/dL (70-99) Sodium Level 144 mmol/L (136-145) Potassium Level 4.0 mmol/L (3.5-5.1) Chloride Level 109 mmol/L (98-107) Carbon Dioxide Level 27 mmol/L (21-32) Anion Gap 8 (6-14) Blood Urea Nitrogen 20 mg/dL (7-20) Creatinine 1.4 mg/dL (0.6-1.0) Estimated GFR (Cockcroft-Gault) 43.3 Glucose Level 166 mg/dL (70-99) Calcium Level 9.1 mg/dL (8.5-10.1) Phosphorus Level 2.1 mg/dL (2.6-4.7) Magnesium Level 2.0 mg/dL (1.8-2.4) Test 11/13/20 16:47 Glucose (Fingerstick) 169 mg/dL (70-99) Assessment/Plan Assessment/Plan IMP CKD STAGE 3 DM II HTN ANEMIA FLANK PAIN PLAN PAIN NOT RELATED TO KIDNEYS GI EVALUATION OK TO CONT ARB WILL FOLLOW SALAZAR TADEO MD Nov 13, 2020 17:42
[2020-11-13] MEDS: ACETAMINOPHEN 325 MG TABLET. PO PRN (17:56)
[2020-11-13 19:00] VITALS: BP 143/46
--- NOTE | 2020-11-13 19:50 | CONS ---
DATE OF CONSULTATION: 11/13/2020 ATTENDING PHYSICIAN: Dr. Castaneda. REASON FOR CONSULTATION: The patient was seen at the request of Dr. Castaneda for rehab evaluation. LOCATION: She is in room 506. HISTORY OF PRESENT ILLNESS: This is an 85-year-old right-handed female, retired patient with known hypertension, diabetes, iron-deficiency anemia, started having right hip area pain since 11/11/2020. She was actually admitted on 11/09/2020 with this discomfort. She denies any radiation of pain to the extremities or any numbness, tingling sensation in the extremities or trouble with her bowel or bladder control. She admits pain mainly in her right hip area. PAST MEDICAL HISTORY: Includes: ALLERGY TO SULFA. MEDICAL HISTORY: She is with known hyperlipidemia. SOCIAL HISTORY: She lives with her in [place], [place], cooks, had two steps to manage to get into the house, no railing. The patient has been independent with her mobility and self-care skills prior to the present hospitalization. Since admission, the patient is being followed by GI. PHYSICAL EXAMINATION: On physical examination today revealed an elderly female. She is alert, oriented to time, place, person and circumstance and follows commands. She appropriately moves all 4 extremities voluntarily where she had 4+/5 grade muscle strength and deep tendon reflexes are 1 to 2+ and symmetrical with absent right ankle jerk. She had equal perception of touch and pinprick sensation bilaterally. She had localized tenderness to palpation over right sacroiliac joint area and anterior aspect of right shoulder. She had crepitus on range of motion of both knee joints with knee joint effusion. She had pain free range of motion of both hip joints. She is independent with bed mobility. I have not tested her transfers or ambulation skills at this time, but apparently she has been getting up and walking to the bathroom as per nursing staff. ASSESSMENT: Elderly female with subacute lumbar sprain, probably associated degenerative disk disease of lumbar vertebrae without any clinical evidence of ongoing lumbar radiculopathy. The patient with degenerative joint disease of both knees without any significant pain, tendinitis right shoulder, mild obesity, the patient with known hypertension, hyperlipidemia and diabetes mellitus. RECOMMENDATION: To proceed with injecting painful right sacroiliac joint area to help ease her pain to get her up and walking as tolerated. Hopefully, home when medically stable, to consider MRI scan of her lumbar vertebrae if her pain persists. Dr. Castaneda, I appreciate asking me to participate in the care of this interesting patient. I will be glad to follow her with you as needed for her rehabilitation. LUZ CORTEZ MD DR: KELLY/leonard JOB#: [id number] / [id number]
[2020-11-13] MEDS ORDERED: PATCH REMOVAL. MC SCH (21:00)
[2020-11-13] MEDS: PSYLLIUM HUSK (SUGAR FREE) 1 PKT PACKET PO SCH (21:00)
--- NOTE | 2020-11-13 22:00 | NUR ---
Patient refuses ss of insulin, 205 results, "I think you've got me on the wrong diet, I don't need to be taking any insulin" held at this time, per patient request.
[2020-11-13] MEDS: ZOLPIDEM 5 MG TABLET. PO PRN (22:05)
[2020-11-13 23:00] VITALS: BP 147/60
[2020-11-14 03:00] VITALS: BP 158/71
[2020-11-14] MEDS: HEPARIN for SUB-Q USE 5,000 UNIT/ML VIAL. SQ SCH ×2 (06:03→15:11)
[2020-11-14 07:00] VITALS: BP 157/63
[2020-11-14] MEDS: MULTIVITAMIN I-VITE TABLET. PO SCH (08:25)
[2020-11-14] MEDS: LOSARTAN POTASSIUM 50 MG TABLET. PO SCH (08:25)
[2020-11-14] MEDS: LIDOCAINE (700MG/PATCH) PATCH. TD SCH (08:25)
[2020-11-14] MEDS: PANTOPRAZOLE 40 MG TABLET.DR. PO SCH (08:25)
[2020-11-14] MEDS: FERROUS SULFATE 325 MG TABLET. PO SCH ×2 (08:25→17:00)
[2020-11-14] MEDS: POLYETHYLENE GLYCOL 3350 17 GM PACKET. PO SCH (08:26)
[2020-11-14] MEDS: SENNOSIDES/DOCUSATE 8.6/50MG TABLET. PO SCH (08:26)
[2020-11-14] MEDS: DOCUSATE SODIUM 100 MG CAPSULE. PO SCH (08:26)
[2020-11-14] MEDS: INSULIN LISPRO 300 UNITS/3 ML VIAL. SQ SCH ×3 (08:38→17:00)
--- NOTE | 2020-11-14 09:18 | PDOC ---
PROGRESS NOTES Date of Service DATE: 11/14/20 TIME: 09:09 Subjective Subjective She admits less pain on right side after injection but she is having pain on her left side. Physical therapy recommended SNF transfer but she prefers to go home. Objective Objective Vital Signs Date Time Temp Pulse Resp B/P (MAP) Pulse Ox O2 Delivery O2 Flow Rate FiO2 11/14/20 08:25 76 157/63 11/14/20 07:00 98.8 18 93 Room Air 98.8 11/11/20 14:50 2 Intake and Output 11/14/20 07:00 # Voids 7 Physical Exam Physical Exam She is alert,sitting at edge of bed and she had tenderness to palpation over left sacroiliac joint;SLR test is negative bilaterally and she continues with tenderness to palpation over anterior aspect of right shoulder and medial knee joint line with associated crepitus on ROM. She is independent with bed mobility,transfers and ambulation with roller walker. She needs assistance for donning lumbar support. X-rays revealed DJD changes in her knees and right shoulder with associated DDD and DJD changes in lumbar spine. Plan Plan of Care I thought of injecting her left sacroiliac joint but with her diabetes, to hold of it at this time and lara consider injecting if needed on out patient basis.To let her go home today with home health physical and occupational therapy follow up and roller walker for home use. Comment Review of Relevant I have reviewed the following items maximilian (where applicable) has been applied. Labs Laboratory Tests Test 11/12/20 11:25 11/12/20 14:20 11/12/20 16:57 11/12/20 20:38 Glucose (Fingerstick) 203 mg/dL (70-99) 121 mg/dL (70-99) 169 mg/dL (70-99) Sodium Level 144 mmol/L (136-145) Potassium Level 4.0 mmol/L (3.5-5.1) Chloride Level 108 mmol/L (98-107) Carbon Dioxide Level 28 mmol/L (21-32) Anion Gap 8 (6-14) Blood Urea Nitrogen 20 mg/dL (7-20) Creatinine 1.7 mg/dL (0.6-1.0) Estimated GFR (Cockcroft-Gault) 34.6 Glucose Level 104 mg/dL (70-99) Calcium Level 9.2 mg/dL (8.5-10.1) Magnesium Level 2.0 mg/dL (1.8-2.4) Test 11/13/20 08:01 11/13/20 10:40 11/13/20 11:24 11/13/20 16:47 Glucose (Fingerstick) 136 mg/dL (70-99) 146 mg/dL (70-99) 169 mg/dL (70-99) Sodium Level 144 mmol/L (136-145) Potassium Level 4.0 mmol/L (3.5-5.1) Chloride Level 109 mmol/L (98-107) Carbon Dioxide Level 27 mmol/L (21-32) Anion Gap 8 (6-14) Blood Urea Nitrogen 20 mg/dL (7-20) Creatinine 1.4 mg/dL (0.6-1.0) Estimated GFR (Cockcroft-Gault) 43.3 Glucose Level 166 mg/dL (70-99) Calcium Level 9.1 mg/dL (8.5-10.1) Phosphorus Level 2.1 mg/dL (2.6-4.7) Magnesium Level 2.0 mg/dL (1.8-2.4) Test 11/13/20 21:16 11/14/20 07:17 Glucose (Fingerstick) 205 mg/dL (70-99) 168 mg/dL (70-99) Laboratory Tests Test 11/13/20 10:40 11/13/20 11:24 11/13/20 16:47 11/13/20 21:16 Sodium Level 144 mmol/L (136-145) Potassium Level 4.0 mmol/L (3.5-5.1) Chloride Level 109 mmol/L (98-107) Carbon Dioxide Level 27 mmol/L (21-32) Anion Gap 8 (6-14) Blood Urea Nitrogen 20 mg/dL (7-20) Creatinine 1.4 mg/dL (0.6-1.0) Estimated GFR (Cockcroft-Gault) 43.3 Glucose Level 166 mg/dL (70-99) Calcium Level 9.1 mg/dL (8.5-10.1) Phosphorus Level 2.1 mg/dL (2.6-4.7) Magnesium Level 2.0 mg/dL (1.8-2.4) Glucose (Fingerstick) 146 mg/dL (70-99) 169 mg/dL (70-99) 205 mg/dL (70-99) Test 11/14/20 07:17 Glucose (Fingerstick) 168 mg/dL (70-99) Microbiology 11/11/20 Urine Culture - Final, Complete 11/11/20 Antimicrobic Susceptibility - Final, Complete Medications Current Medications Sodium Chloride 1,000 ml @ 100 mls/hr Q10H IV Last administered on 11/09/20at 23:49; Start 11/08/20 at 20:45; Stop 11/10/20 at 07:52; Status DC Ondansetron HCl (Zofran) 4 mg PRN Q6HRS PRN IVP NAUSEA/VOMITING Last administered on 11/08/20at 21:05; Start 11/08/20 at 20:45; Stop 11/09/20 at 10:08; Status DC Morphine Sulfate (Morphine Sulfate) 2 mg PRN Q1HR PRN IV PAIN Last administered on 11/09/20at 03:34; Start 11/08/20 at 20:45; Stop 11/09/20 at 10:18; Status DC Bisacodyl (Dulcolax Supp) 10 mg PRN DAILY PRN ID CONSTIPATION; Start 11/08/20 at 20:45; Stop 11/09/20 at 10:17; Status DC Heparin Sodium (Porcine) (Heparin Sodium) 5,000 unit Q8HRS SQ Last administered on 11/14/20at 06:03; Start 11/08/20 at 22:00 Acetaminophen (Tylenol Supp) 650 mg PRN Q6HRS PRN ID MILD PAIN / TEMP > 100.3'F; Start 11/08/20 at 20:45 Insulin Human Lispro (HumaLOG) 0-7 UNITS Q6HRS SQ ; Start 11/09/20 at 00:00; Stop 11/11/20 at 21:26; Status DC Dextrose (Dextrose 50%-Water Syringe) 12.5 gm PRN Q15MIN PRN IV SEE COMMENTS; Start 11/08/20 at 20:45 Metoclopramide HCl (Reglan Vial) 10 mg PRN Q6HRS PRN IVP NAUSEA/VOMITING-2ND CHOICE Last administered on 11/10/20at 20:29; Start 11/08/20 at 20:45 Multivitamins/ Minerals (I-Marily) 1 tab DAILY PO Last administered on 11/14/20at 08:25; Start 11/09/20 at 09:00 Losartan Potassium (Cozaar) 100 mg DAILY PO Last administered on 11/14/20at 08:25; Start 11/09/20 at 09:00 Psyllium Hydrophilic Mucilloid (Metamucil Fiber Packet) 1 pkt QHS PO Last administered on 11/09/20at 23:55; Start 11/08/20 at 21:30 Olanzapine (ZyPREXA ZYDIS) 5 mg PRN BID PRN PO ANXIETY / AGITATION Last administered on 11/11/20at 19:56; Start 11/08/20 at 21:30 Polyethylene Glycol (miraLAX PACKET) 17 gm DAILY PO Last administered on 11/10/20at 08:23; Start 11/09/20 at 09:00 Senna/Docusate Sodium (Senna Plus) 2 tab PRN BID PRN PO CONSTIPATION; Start 11/08/20 at 21:30; Stop 11/09/20 at 10:18; Status DC Ringer's Solution 1,000 ml @ 75 mls/hr [id number] IV Last administered on 11/09/20at 10:29; Start 11/09/20 at 10:15; Stop 11/09/20 at 23:34; Status DC Ondansetron HCl (Zofran) 4 mg PRN Q6HRS PRN IVP NAUSEA/VOMITING Last administered on 11/10/20at 10:40; Start 11/09/20 at 10:15 Prochlorperazine (Compazine) 25 mg PRN Q12HR PRN ID NAUSEA/VOMITING; Start 11/09/20 at 10:15 Calcium Carbonate/ Glycine (Tums) 500 mg PRN Q3HRS PRN PO UPSET STOMACH; Start 11/09/20 at 10:15 Zolpidem Tartrate (Ambien) 5 mg PRN QHS PRN PO INSOMNIA, MAY REPEAT IN 1HR Last administered on 11/13/20at 22:05; Start 11/09/20 at 10:15 Info (Non-Icu Electrolyte Protocol) 1 ea PRN DAILY PRN MC SEE COMMENTS; Start 11/09/20 at 10:15 Morphine Sulfate (Morphine Sulfate) 2 mg PRN Q1HR PRN IV PAIN MILD TO MOD Last administered on 11/10/20at 20:29; Start 11/09/20 at 10:15 Acetaminophen/ Hydrocodone Bitart (Lortab 5/325) 1 tab PRN Q4HRS PRN PO MILD PAIN 1-3 Last administered on 11/12/20at 21:43; Start 11/09/20 at 10:15 Acetaminophen (Tylenol) 650 mg PRN Q6HRS PRN PO Headaches, Temp > 101.5F Last administered on 11/13/20at 17:56; Start 11/09/20 at 10:15 Senna/Docusate Sodium (Senna Plus) 1 tab BID PO Last administered on 11/13/20at 08:36; Start 11/09/20 at 21:00 Docusate Sodium (Colace) 100 mg BID PO Last administered on 11/13/20at 22:05; Start 11/09/20 at 21:00 Lactulose (Lactulose) 20 gm PRN Q12HR PRN PO CONSTIPATION; Start 11/09/20 at 10:15 Bisacodyl (Dulcolax Supp) 10 mg PRN DAILY PRN ID CONSTIPATION; Start 11/09/20 at 10:15 Pantoprazole Sodium (PROTONIX VIAL for IV PUSH) 40 mg DAILYAC IVP Last adm inistered on 11/12/20at 05:48; Start 11/10/20 at 07:30; Stop 11/12/20 at 09:58; Status DC Prochlorperazine Edisylate (Compazine) 10 mg PRN Q6HRS PRN IM NAUSEA/VOMITING; Start 11/10/20 at 11:15; Stop 11/10/20 at 11:16; Status DC Prochlorperazine Edisylate (Compazine) 10 mg PRN Q6HRS PRN IVP NAUSEA/VOMITING, 3RD CHOICE Last administered on 11/10/20at 11:22; Start 11/10/20 at 11:15 Hydralazine HCl (Apresoline Inj) 10 mg PRN Q4HRS PRN IVP ELEVATED BP, SEE COMMENTS; Start 11/10/20 at 12:45 Labetalol HCl (Normodyne Iv Push) 20 mg 1X ONCE IVP Last administered on 11/10/20at 15:27; Start 11/10/20 at 12:45; Stop 11/10/20 at 12:46; Status DC Ringer's Solution 1,000 ml @ 75 mls/hr 1X ONCE IV Last administered on 11/11/20at 14:38; Start 11/11/20 at 13:15; Stop 11/12/20 at 02:34; Status DC Propofol (Diprivan) 200 mg STK-MED ONCE IV ; Start 11/11/20 at 14:34; Stop 11/11/20 at 14:34; Status DC Lidocaine HCl (Lidocaine Pf 2% Vial) 5 ml STK-MED ONCE .ROUTE ; Start 11/11/20 at 14:34; Stop 11/11/20 at 14:34; Status DC Hydralazine HCl (Apresoline Inj) 10 mg 1X ONCE IVP Last administered on 11/11/20at 15:29; Start 11/11/20 at 15:15; Stop 11/11/20 at 15:16; Status DC Insulin Human Lispro (HumaLOG) 0-7 UNITS TIDWMEALHC SQ Last administered on 11/14/20at 08:38; Start 11/11/20 at 21:30 Pantoprazole Sodium (Protonix) 40 mg DAILYAC PO Last administered on 11/14/20at 08:25; Start 11/13/20 at 07:30 Ferrous Sulfate (Feosol) 325 mg BIDWMEALS PO Last administered on 11/14/20at 08:25; Start 11/12/20 at 10:30 Lidocaine (Lidoderm) 1 patch DAILY TD Last administered on 11/14/20at 08:25; Start 11/13/20 at 09:00 Miscellaneous (Lidoderm Patch Removal) 1 ea [facility] ; Start 11/13/20 at 21:00 Methylprednisolone Acetate (DEPO-Medrol 40MG VIAL) 40 mg 1X ONCE IM Last administered on 11/13/20at 14:15; Start 11/13/20 at 13:45; Stop 11/13/20 at 13:51; Status DC Bupivacaine HCl (Sensorcaine-Mpf 0.25%) 10 ml 1X ONCE IJ Last administered on 11/13/20at 14:15; Start 11/13/20 at 13:45; Stop 11/13/20 at 13:51; Status DC Active Scripts Active Reported Iron (Ferrous Sulfate) 325 Mg Tablet 325 Mg PO BID Diovan (Valsartan) 160 Mg Tablet 160 Mg PO DAILY Actos (Pioglitazone Hcl) 15 Mg Tablet 15 Mg PO DAILY Ocuvite Tablet (Vit A,C & E/Lutein/Minerals) 1 Each Tablet 1 Tab PO DAILY 30 Days Glimepiride 2 Mg Tablet 2 Mg PO DAILY Vitals/I & O Vital Sign - Last 24 Hours 11/13/20 11/13/20 11/13/20 11/13/20 11:00 15:00 19:00 20:09 Temp 99.5 99.8 98.6 99.5 99.8 98.6 Pulse 57 85 86 Resp 16 18 18 B/P (MAP) 166/78 (107) 159/59 (92) 143/46 (78) Pulse Ox 98 98 96 O2 Delivery Room Air Room Air Room Air Room Air 11/13/20 11/14/20 11/14/20 11/14/20 23:00 03:00 07:00 08:25 Temp 98.4 98.4 98.8 98.4 98.4 98.8 Pulse 74 80 76 76 Resp 18 18 18 B/P (MAP) 147/60 (89) 158/71 (100) 157/63 (94) 157/63 Pulse Ox 97 96 93 O2 Delivery Room Air Room Air Room Air Justifications for Admission Abdominal Pain Indications Is patient in severe pain?: Yes Is NPO status required?: Yes Justification for admission: Patient may require to be NPO for greater 24hours making it medically necessary to manage patient as inpatient. Other Justification LUZ CORTEZ MD Nov 14, 2020 09:18
[2020-11-14 10:04] LABS: CALCIUM 9.2 mg/dL (8.5-10.1); CREATININE 1.2 mg/dL (0.6-1.0); GFR 51.8; POTASSIUM 3.9 mmol/L (3.5-5.1)
[2020-11-14 11:00] VITALS: BP 141/55
--- NOTE | 2020-11-14 11:38 | PDOC ---
Renal-Progress Notes Subjective Notes Notes NO NEW COMPLAINTS History of Present Illness Hx of present illness STABLE Vitals Vitals Vital Signs Date Time Temp Pulse Resp B/P (MAP) Pulse Ox O2 Delivery O2 Flow Rate FiO2 11/14/20 11:00 98.7 82 18 141/55 (83) 98 Room Air 98.7 Weight Weight [ ] I.O. Intake and Output Intake and Output 11/14/20 07:00 # Voids 7 Labs Labs Laboratory Tests Test 11/13/20 16:47 11/13/20 21:16 11/14/20 07:17 11/14/20 08:20 Glucose (Fingerstick) 169 mg/dL (70-99) 205 mg/dL (70-99) 168 mg/dL (70-99) Sodium Level 141 mmol/L (136-145) Potassium Level 3.9 mmol/L (3.5-5.1) Chloride Level 106 mmol/L (98-107) Carbon Dioxide Level 25 mmol/L (21-32) Anion Gap 10 (6-14) Blood Urea Nitrogen 21 mg/dL (7-20) Creatinine 1.2 mg/dL (0.6-1.0) Estimated GFR (Cockcroft-Gault) 51.8 Glucose Level 150 mg/dL (70-99) Calcium Level 9.2 mg/dL (8.5-10.1) Micro Micro Microbiology 11/11/20 Urine Culture - Final, Complete 11/11/20 Antimicrobic Susceptibility - Final, Complete Review of Systems Constitutional: yes: alert, oriented Ears/Nose/Throat: Yes: no symptom reported Eyes: Yes: no symptom reported Pulmonary: Yes no symptom reported Cardiovascular: Yes no symptom reported Gastrointestional: Yes: no symptom reported Genitourinary: Yes: no symptom reported Musculoskeletal: Yes: muscle stiffness Skin: Yes no symptom reported Psychiatric/Neurological: Yes: no symptom reported Endocrine: Yes: no symptom reported Physical Exam General Appearance: no apparent distress Skin: warm Respiratory: bilateral CTA Heart: S1S2 Abdomen: soft, bowel sounds present Genitourinary: bladder flat Extremities: atrophy Neurology: alert Assessment Assessment IMP CKD STAGE 3-CR STABLE AT 1.4 DM II HTN ANEMIA FLANK PAIN PLAN PAIN NOT RELATED TO KIDNEYS GI EVALUATION OK TO CONT ARB WILL FOLLOW SALAZAR TADEO MD Nov 14, 2020 11:38
[2020-11-14] MEDS: ONDANSETRON PF 4 MG/2 ML VIAL. IVP PRN (12:03)
--- NOTE | 2020-11-14 12:04 | SNU/HH DC ---
DISCHARGE WITH HOME HEALTH DISCHARGE INFORMATION: Discharge Date: Nov 14, 2020 Condition on Discharge: Guarded HOME HEALTH: Face to Face: I certify this patient is under my care and that I, or a nurse practitioner or physician's assistant corporate controller working with me, had a face to face encounter that meets the physician face to face encounter requirements with this patient on []. Medical Complications: Dementia, Falls Snf For: Assess & Educate Safety, Assess/Skilled Observatio, Medication Management, Pain Management RN For Eval/Treatment: Yes Physical Therapy For: Evalulation/Treatment Occupational Therapy For: Evaluation/Treatment Home Health Aide For: Self-care Pt Meets Homebound Status: Poor coordination w/ amb., Fatigue w/ amb., Limited distance walking, Unable to negotiate home POST DISCHARGE ORDERS: Activity Instructions for Disc: Activity as tolerated Weight Bearing Status after Di: As tolerated DIET AFTER DISCHARGE: Cardiac FOLLOW-UP: Follow up with: PCP within 2 weeks Follow Up With: GI as needed DC TO SNF LABS: CBC, CMP within 2 weeks of discharge CERTIFICATION STATEMENT: Certification Statement: Certification Statement: Based on the above finding, I certify that this patient is confined to the home and needs intermittent senior living care, physical therapy and/or speech therapy, or continues to need occupational therapy.~ This patient is under my care, and I have initiated the establishment of the plan of care.~ This patient will be followed by myself or a community physician who will periodically review the plan of care. Home Meds Reported Medications Ferrous Sulfate (IRON) 325 Mg Tablet, 325 MG PO BID for iron supplement without sulfa, TAB 11/08/20 Valsartan (DIOVAN) 160 Mg Tablet, 160 MG PO DAILY for htn, TAB 11/08/20 Pioglitazone Hcl (ACTOS) 15 Mg Tablet, 15 MG PO DAILY for dm, TAB 11/08/20 Vit A,C & E/Lutein/Minerals (OCUVITE TABLET) 1 Each Tablet, 1 TAB PO DAILY for vitamin for 30 Days, #30 TAB 0 Refills 11/08/20 Glimepiride (GLIMEPIRIDE) 2 Mg Tablet, 2 MG PO DAILY for dm, TAB 11/08/20 HUMA DIAZ MD Nov 14, 2020 12:04
--- NOTE | 2020-11-14 12:09 | PDOC ---
Date of Service: DATE: 11/14/20 TIME: 12:02 Subjective: Subjective: In restroom - says she's doing okay. Objective: Objective: Plans to DC w/ HH. Other notes discuss right shoulder pain. After I went by, nurse says pt reported nausea and green emesis - not seen by staff. Vital Signs: Vital Signs Date Time Temp Pulse Resp B/P (MAP) Pulse Ox O2 Delivery O2 Flow Rate FiO2 11/14/20 11:00 98.7 82 18 141/55 (83) 98 Room Air 98.7 Labs: Laboratory Tests Test 11/13/20 16:47 11/13/20 21:16 11/14/20 07:17 11/14/20 08:20 Glucose (Fingerstick) 169 mg/dL 205 mg/dL 168 mg/dL Sodium Level 141 mmol/L Potassium Level 3.9 mmol/L Chloride Level 106 mmol/L Carbon Dioxide Level 25 mmol/L Anion Gap 10 Blood Urea Nitrogen 21 mg/dL Creatinine 1.2 mg/dL Estimated GFR (Cockcroft-Gault) 51.8 Glucose Level 150 mg/dL Calcium Level 9.2 mg/dL Imaging: Hip, L-spin, Knee, Shoulder X-Rays 11/13 IMPRESSION: 1. Right rotator cuff pathology. No fracture or dislocation. 2. Lumbar spinal degenerative changes with no fracture or aggressive bony lesions. 3. Intact pelvis and right hip. No fracture or dislocation. 4. Bilateral knee medial joint space predominant degenerative change and venous varices. PE: GEN: in restroom A/P: Right-sided pain (hip, shoulder), DJD, DDD UTI, ROSALIA (better) YONI Mild GERD CRC screen - last ~4 years ago -- Continue PPI and iron, consider outpt colonoscopy. DC per primary - nurse says no PPI Rx left - will provide. Justicifation of Admission Dx: Justifications for Admission: Justification of Admission Dx: Yes Acute Renal Failure: 75% Reduction in GFR HUI SINGH Nov 14, 2020 12:09
[2020-11-14] MEDS: ACETAMINOPHEN 325 MG TABLET. PO PRN (12:51)
[2020-11-14 15:00] VITALS: BP 146/43
--- NOTE | 2020-11-14 18:45 | NUR ---
Discharge Note: Patient was discharged home with home health services. Patients IV's were discontinued without any complications per TECHNICIAN SUPPORT ENGINEER's. Patients daughter Cat, at the bedside at the time of discharge education. Patient was given discharge summary/instructions, follow-ups, prescriptions and educational material. Patient did not have any further questions or concerns. Patient was taken down to the main entrance via wheelchair with all personal belongings accompanied by LYNN Wooten and LYNN Shelton, where her daughter was waiting for her to take her home.
--- NOTE | 2020-11-17 16:07 | PDOC3 ---
[facility]-Discharge Summary Date of Admission: Date of Admission: Nov 09, 2020 Date of Discharge: Date of Discharge: Nov 14, 2020 Discharge Diagnosis: Discharge Diagnosis: Anemia of unknown origin, etiology undetermined, seems to be of chronic inflammation. Unlikely she is actively having a GI bleed Reported nausea and vomiting currently has recurred Left CVA tenderness, no rash visible to think of zoster. We will request renal ultrasound in light of her renal dysfunction Elevated creatinine which may be due to chronic kidney disease stage IIIa at least essential hypertension fairly controlled DM type 2 dyslipidemia Hospital Course: Hospital Course: 85-year-old female with multiple medical comorbidities that include hypertension diabetes iron deficiency anemia who was in her usual state of health until Wednesday when he started complaining of left CVA tenderness. The patient denied any urinary symptoms no dysuria no fever or chills were reported patient denied any nausea vomiting or diaphoresis reported either. She consulted her local emergency department and was admitted to [facility]. 11/10: Patient laying in bed in no acute distress. The patient had 3 emetic episodes during the evening. Patient denies hematemesis still complaining of epigastric pain which may be related to peptic ulcer disease. Patient still having left flank pain. No hematuria reported no radiation to the groin. Renal dysfunction noted upon admission we will request renal ultrasound for today. Plan of care explained detail all concerns addressed to the best my abilities 11/11/2020 No acute events overnight. Patient plan for EGD today pending final reports. Patient's chart, labs, images were reviewed and discussed with RN 11/12/2020 No acute events overnight. Patient is tolerating diet. Encourage fluid intake as patient's creatinine bumped from 1.3-1.7. Patient does have history of chronic kidney disease. Will consult nephrology for evaluation anticipate discharge in the next 24 hours. Will observe overnight after encouraging fluid intake. Patient's chart, labs, images were reviewed and discussed with RN 11/13/2020 No acute events overnight. Patient does complain of right hip pain. Worse during ambulation and movement. Creatinine function improved. Tolerating diet without any nausea vomiting episodes. Patient's chart, labs, images were reviewed and discussed with RN Patient toelrating diet and no episodes of N/V. She will need to continue with rehab with home health upon discharge. Her renal fxn was stable by the time of her discharge. Rest of her hospital course was uneventful. Activity: Activity: Resume previous activity Medications: Home Meds Reported Medications Ferrous Sulfate (IRON) 325 Mg Tablet, 325 MG PO BID for iron supplement without sulfa, TAB 11/08/20 Valsartan (DIOVAN) 160 Mg Tablet, 160 MG PO DAILY for htn, TAB 11/08/20 Pioglitazone Hcl (ACTOS) 15 Mg Tablet, 15 MG PO DAILY for dm, TAB 11/08/20 Vit A,C & E/Lutein/Minerals (OCUVITE TABLET) 1 Each Tablet, 1 TAB PO DAILY for vitamin for 30 Days, #30 TAB 0 Refills 11/08/20 Glimepiride (GLIMEPIRIDE) 2 Mg Tablet, 2 MG PO DAILY for dm, TAB 11/08/20 Scheduled Ferrous Sulfate (Iron), 325 MG PO BID, (Reported) Glimepiride (Glimepiride), 2 MG PO DAILY, (Reported) Pioglitazone Hcl (Actos), 15 MG PO DAILY, (Reported) Valsartan (Diovan), 160 MG PO DAILY, (Reported) Vit A,C & E/Lutein/Minerals (Ocuvite Tablet), 1 TAB PO DAILY, (Reported) Total Time: Total Time: Total time spent was 45 minutes in preparing scripts, discharge planning with SW and RN, and preparing this discharge summary. Patient seen and examined on day of discharge. Justicifation of Admission Dx: Justifications for Admission: Justification of Admission Dx: Yes Acute Renal Failure: 75% Reduction in GFR HUMA DIAZ MD Nov 17, 2020 16:07
== END 2020-11-14 18:45 | disposition home health service (06) | DRG 391 ==
LOC: 5 NORTH 18:48
PROVIDERS: ADMIT Internal Medicine; ATTEND Internal Medicine
PROC: 0DJ08ZZ Inspection of Upper Intestinal Tract, Via Natural or Artificial Opening Endoscopic (ICD-10-PCS; principal; 2020-11-11 15:00)
PROC: 3E0U33Z Introduction of Anti-inflammatory into Joints, Percutaneous Approach (ICD-10-PCS; 2020-11-13)
PROC: 3E0U3BZ Introduction of Anesthetic Agent into Joints, Percutaneous Approach (ICD-10-PCS; 2020-11-13)
DX: K21.00 Gastro-esophageal reflux disease with esophagitis, without bleeding (principal); N17.0 Acute kidney failure with tubular necrosis; N39.0 Urinary tract infection, site not specified; D64.9 Anemia, unspecified; E11.22 Type 2 diabetes mellitus with diabetic chronic kidney disease; E78.5 Hyperlipidemia, unspecified; I12.9 Hypertensive chronic kidney disease with stage 1 through stage 4 chronic kidney disease, or unspecified chronic kidney disease; M17.0 Bilateral primary osteoarthritis of knee; N18.30 Chronic kidney disease, stage 3 unspecified; S33.5XXA Sprain of ligaments of lumbar spine, initial encounter; Z88.2 Allergy status to sulfonamides
CPT/HCPCS: 36415; 43235; 72020; 73030; 73502; 73565; 76770; 80048; 80053; 81001; 82607; 82962; 83010; 83540; 83550; 83615; 83735; 84100; 84443; 85025; 85610; 87077; 87086; 87186; 87426; 99285; C9113; J0360; J0780; J1030; J1644; J1815; J2270; J2405; J2704; J2765; J3490; J7120; U0003; 97110-GP; 97116-GP; 97530-GO; 97530-GP; 97535-GO; G0378